=== PATIENT | female | born 1960 | race Caucasian/White ===

== ENCOUNTER 2016-10-08 08:00 | Inpatient (IN) ==
--- NOTE | 2016-10-07 09:46 | Cardiothoracic History & Phys ---
History of Present Illness Chief complaint: Chest pain History of present illness: Ms. Iqbal is a 56 year old female who is a patient of Dr. Ventura's at [facility] who has a history of ischemic coronary disease with multiple interventions requiring stents placed in her coronary arteries. She is continued however to have chest pain and it is felt that further stenting would be detrimental. She was referred for bypass surgery. Cardiac catheterization presently shows patent vessels in the right coronary anterior descending coronary and circumflex marginal coronary distribution all of which contain stents. She does have distal targets in the right and anterior descending distribution I think she is a candidate for surgery on that basis. She is to be admitted on 10/08/2016 for surgery on 10/11/2016. Past medical history is significant in that the patient has been a smoker all of her life but did quit in 2014 she does not use alcohol or drugs. Her family history shows that both her mother and father prematurely of coronary disease. Past medical history is also significant in that the patient has type 2 diabetes mellitus and rather severe peripheral vascular disease especially in the left leg. Physical examination patient is an obese white female in no acute distress. Examination of head eyes ears nose and throat show the pupils are equal react to light and extraocular motions are intact. Examination of the oropharynx is benign. Examination of the neck shows no masses and there is no thyromegaly. Examination of chest is clear to percussion and auscultation. Examination the heart reveals a regular sinus rhythm without murmurs. Examination the abdomen shows that it is obese nontender and no organomegaly or masses are appreciated. Examination extremities shows that there is a scar will left femoral- popliteal bypass operation on the left side and on the right side there has been no previous surgery. Neurological examination is grossly within normal limits. Assessment: Severe coronary artery disease with multiple previous stenting procedures. Plan: Coronary bypass surgery to the anterior descending and right coronary arteries. Home Medications Medication Instructions Recorded Confirmed Type Canagliflozin [Invokana] 300 mg PO QAM 05/05/16 05/05/16 History Carvedilol 12.5 mg PO BID 05/05/16 05/05/16 History Ergocalciferol (Vitamin D2) 50,000 unit PO DAILY 05/05/16 05/05/16 History [Vitamin D2] Eszopiclone [Eszopiclone] 3 mg PO BEDTIME 05/05/16 05/05/16 History Furosemide [Furosemide] 40 mg PO DAILY PRN 05/05/16 05/05/16 History Gabapentin [Gabapentin] 300 mg PO BID 05/05/16 05/05/16 History Insulin Degludec [Tresiba 45 unit SUBCUT QAM 05/05/16 05/05/16 History Flextouch U-100] Isosorbide Mononitrate [Isosorbide 60 mg PO DAILY 05/05/16 05/05/16 History Mononitrate ER] Lisinopril 5 mg PO DAILY 05/05/16 05/05/16 History Nitroglycerin Sl Tab [Nitrostat] 0.4 mg SL Q5M PRN 05/05/16 05/05/16 History Rosuvastatin [Crestor] 20 mg PO BEDTIME 05/05/16 05/05/16 History Ticagrelor [Brilinta] 90 mg PO BID 05/05/16 05/05/16 History Tizanidine HCl [Tizanidine HCl] 4 mg PO BEDTIME 05/05/16 05/05/16 History carBAMazepine [Carbamazepine ER] 200 mg PO BID 05/05/16 05/05/16 History Allergies Allergy/AdvReac Type Severity Reaction Status Date / Time levofloxacin [From Levaquin] Allergy ITCHING Verified 01/02/16 13:27 Medical,Surgical,& Family Hx - Medical History Cardio: History of: CAD Psychological: History of: Depression Respiratory: History of: Obstructive Sleep Apnea - Surgical History Cardiac Surgeries: Sugical HX of: Cardiac Catheterization, Cardiac Surgery (14 stents) HEENT Surgeries: Surgical HX of: Tonsilectomy & Adenoidectomy Reproductive Surgeries: Surgical HX of;: Section, Hysterectomy - Family History Family History: Reports;: Family Heart Disease
[~2016-10-08 08:00] MED LIST: DEXTROSE 50% 25 GM/50 ML VIAL IV PRN; FUROSEMIDE 40 MG TABLET PO PRN; GLUCAGON 1 MG VIAL IM PRN; NITROGLYCERIN SL 0.4 MG TABLET SL PRN
[2016-10-08] MEDS ORDERED: INSULIN DEGLUDEC 45 UNIT SUBCUT SCH (09:00)
--- NOTE | 2016-10-08 13:32 | Hospitalist Consult Note ---
Assessment and Plan - Time spent with patient Time spent with patient: Greater than 30 minutes (1) Diabetes Status: Acute Assessment and plan: Diabetes Medical Management: Will discontinue home diabetic medications; will place on SSI coverage. check A1c; parent educator consult. Current Visit: Yes Qualifiers: Diabetes mellitus type: type 2 Chronic kidney disease stage: stage 2 (mild ) (2) Coronary artery disease Status: Acute Current Visit: Yes (3) Sleep apnea Status: Acute Current Visit: Yes (4) Hypertension Status: Acute Current Visit: Yes (5) Peripheral vascular disease Status: Acute Current Visit: Yes History of Present Illness - Consult Narrative Reason for consult: Medical Management Diabetes History of present illness: Ms. Iqbal is a 56 year old white female at [facility] in [place] Room 285 for scheduled Coronary Artery Bypass scheduled for Tuesday. This consult visit is for Medical Management for Diabetes history. 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 Dr Byrd is following Stage II renal disease PCP Dr Magdi [place] CC: Luis Melendez MD - Home Medications and Allergies Home Medications: Home Medications Medication Instructions Recorded Confirmed Type Carvedilol 12.5 mg PO BID 05/05/16 10/08/16 History Furosemide [Furosemide] 80 mg PO DAILY 05/05/16 10/08/16 History Insulin Degludec [Tresiba 60 unit SUBCUT QAM 05/05/16 10/08/16 History Flextouch U-100] Isosorbide Mononitrate [Isosorbide 60 mg PO DAILY 05/05/16 10/08/16 History Mononitrate ER] Lisinopril 10 mg PO DAILY 05/05/16 10/08/16 History Nitroglycerin Sl Tab [Nitrostat] 0.4 mg SL Q5M PRN 05/05/16 10/08/16 History Rosuvastatin [Crestor] 20 mg PO BEDTIME 05/05/16 10/08/16 History Ticagrelor [Brilinta] 90 mg PO BID 05/05/16 10/08/16 History Tizanidine HCl [Tizanidine HCl] 4 mg PO BEDTIME 05/05/16 10/08/16 History Albuterol Sulfate [Albuterol Neb] 2.5 mg RESP TX Q6HR 10/08/16 10/08/16 History Amlodipine Besylate [Amlodipine 10 mg PO DAILY 10/08/16 10/08/16 History Besylate] Aspirin Chew Tab 81 mg PO DAILY 10/08/16 10/08/16 History Duloxetine HCl [Duloxetine] 30 mg PO DAILY 10/08/16 10/08/16 History Eszopiclone [Lunesta] 3 mg PO BEDTIME 10/08/16 10/08/16 History Evolocumab [Repatha Sureclick] 140 mg SUBCUT DIRECTED 10/08/16 10/08/16 History Fluticasone 50 Mcg Nasal [place] 2 spray BOTH NARES DAILY 10/08/16 10/08/16 History [Flonase Nas[place]] Folic Acid Tab 1 mg PO DAILY 10/08/16 10/08/16 History Gabapentin [Gabapentin] 300 mg PO BID 10/08/16 10/08/16 History Hydrocodone/Acetaminophen 1 tablet PO Q4HR 10/08/16 10/08/16 History [Hydrocodon-Acetaminophn 10-325] Icosapent Ethyl [Vascepa] 2 capsule PO BID 10/08/16 10/08/16 History Insulin Aspart [NovoLOG FlexPen] 20 unit SUBCUT TID 10/08/16 10/08/16 History Saxagliptin HCl [Onglyza] 5 mg PO DAILY 10/08/16 10/08/16 History Sertraline [Zoloft] 100 mg PO DAILY 10/08/16 10/08/16 History carBAMazepine XR TAB [TEGretol XR] 200 mg PO BID 10/08/16 10/08/16 History hydrALAZINE TAB [Apresoline Tab] 1.5 tablet PO TID 10/08/16 10/08/16 History metOLazone [Metolazone] 5 mg PO DAILY 10/08/16 10/08/16 History Allergies/Adverse Reactions: Allergies Allergy/AdvReac Type Severity Reaction Status Date / Time levofloxacin [From Levaquin] Allergy ITCHING Verified 01/02/16 13:27 Medical,Surgical,& Family Hx - Medical History Cardio: History of: CAD, Hypertension, SD, Cardiovascular Problems Psychological: History of: Depression Neurology: History of: Cerebrovascular Accident (right stroke without deficits) Endocrine: History of: Dyslipidemia Rheumatology: History of;: Fibromyalgia Respiratory: History of: Obstructive Sleep Apnea Gastrointestinal: History of: GERD - Surgical History Cardiac Surgeries: Sugical HX of: Femoral-Popliteal Bypass Graft (Left leg; clotted bypass and stents placed; bilateral leg stents), Cardiac Catheterization , Cardiac Surgery (15 stents; pacemaker) HEENT Surgeries: Surgical HX of: Tonsilectomy & Adenoidectomy Reproductive Surgeries: Surgical HX of;: Section, Hysterectomy - Family History Family History: Reports;: Family Heart Disease, Family Hypertension - Social History Smoking Status: Former smoker (quit December 2014) Frequency of Alcohol Use: None Type of Drug Use: None Marital Status: Lives With:: 3 grandchildren Functional capacity: uses cane/walker Review of systems: ROS completed and pertinent positives and negatives in HPI. Exam - Constitutional Vitals: Period Temp Pulse Resp BP Sys/Hoang Pulse Ox Last 24 Hr 97.9 F 63 20 141/74 General appearance: no acute distress, morbidly obese - Head Head exam: Present: normal inspection - Eye Eye exam: Present: EOMI Pupils: Present: ZAFAR - Neck Neck exam: Present: normal inspection - Respiratory Respiratory exam: Present: clear to auscultation bilaterally - GI/Abdominal GI/Abdominal exam: Present: normal bowel sounds, soft. Absent: guarding, tenderness, rebound - Extremities Exam Extremities exam: Present: edema, other (left leg Bypass (fem-pop) scar and bilateral edema) - Neurological Exam Neurological exam: Present: alert, oriented X3 - Psychiatric Psychiatric exam: Present: normal affect - Skin Skin exam: Present: normal color, warm, dry Results - Labs Lab Results: I have reviewed the past 24 hour labs Labs: Blood Glucose 235 Quality Measures - VTE Contraindication to Pharmacological VTE Prophylaxis: High Risk of Bleeding
[2016-10-08] MEDS ORDERED: GLUCAGON 1 MG VIAL IM PRN (14:00)
[2016-10-08] MEDS ORDERED: DEXTROSE 50% 25 GM/50 ML VIAL IV PRN (14:00)
[2016-10-08] MEDS: INSULIN LISPRO 100 UNIT/ML SUBCUT SCH ×2 (16:05→22:23)
[2016-10-08] MEDS ORDERED: INSULIN LISPRO 100 UNIT/ML SUBCUT SCH ×3 (17:00→21:00)
[2016-10-08] MEDS: ALBUTEROL 2.5 MG/3 ML NEB RESP TX SCH (19:50)
[2016-10-08] MEDS ORDERED: GABAPENTIN 300 MG CAPSULE PO SCH (21:00)
[2016-10-08] MEDS: ZALEPLON 5 MG CAPSULE PO SCH (22:22)
[2016-10-08] MEDS: hydrALAZINE 25 MG TABLET PO SCH (22:22)
[2016-10-09] MEDS: ALBUTEROL 2.5 MG/3 ML NEB RESP TX SCH ×5 (01:50→20:01)
[2016-10-09 04:07] LABS: Allen Test Positive; Pt O2 Delivery Device Room Air
[2016-10-09 04:18] LABS: ABG Base Excess 4.4 MMOL/L (-2.5-2.5); ABG HCO3 28.3 MMOL/L (20-26); ABG Oxygen Saturation 90.5 % (95-100); ABG PCO2 44.1 MM HG (35-48); ABG PH 7.429 (7.35-7.45); ABG PO2 54.3 MM HG (80-95); ABG TCO2 27.3 MMOL/L (23-27)
[2016-10-09 06:15] LABS: Basophils % 0.6 % (0.0-0.8); Eosinophils # 0.2 10*3/uL (0.0-0.87); Eosinophils % 3.7 % (0.00-10.9); Hematocrit 25.5 VOL% (35.7-47.0); Immature Granulocytes Absolute 0.05 #; Lymphocytes # 1.7 10*3/uL (1.4-4.0); Lymphocytes % 32.7 % (21.3-54.2); Mean Corpuscular HGB Conc 35.7 GM/DL (32-36); Mean Corpuscular Hemoglobin 34 PG (27-34); Mean Corpuscular Volume 95.9 FL (87-102); Mean Platelet Volume 11.3 FL (9.6-12.0); Monocytes # 0.4 10*3/uL (0.11-0.8); Monocytes % 7.7 % (1.7-12.7); Neutrophils # 2.8 10*3/uL (1.4-7.4); Neutrophils % 54.3 % (38.7-73.9); Platelet Count 175 T/CUMM (130-400); Red Blood Count 2.66 MC/CUMM (3.8-5.5); Red Cell Distribution Width 13.1 % (9.3-17.3); White Blood Count 5.2 T/CUMM (4-12)
[2016-10-09 06:16] LABS: Hemoglobin 9.1 GM/DL (12.0-16.0)
[2016-10-09 06:39] LABS: Alanine Aminotransferase 23 U/L (13-56); Albumin 2.5 G/DL (3.4-5.0); Alkaline Phosphatase 98 U/L (45-117); Aspartate Amino Transferase 15 U/L (0-37); Bilirubin,Total < 0.39 MG/DL (0.2-1.0); Blood Urea Nitrogen 55 MG/DL (7-18); Calcium 8.6 MG/DL (8.5-10.1); Glucose 187 MG/DL (74-106); Osmolality,Calculated 305.8 MOS/KG (273-304); Potassium 4.2 MMOL/L (3.5-5.1); Sodium 144 MMOL/L (136-145); Total Protein 5.5 G/DL (6.4-8.3)
[2016-10-09 06:55] LABS: Hypochromasia Slight; Platelet Estimate Adequate
[2016-10-09] MEDS: FLUTICASONE 50 MCG NASAL SPRAY 16 GM BOTTLE BOTH NARES SCH (08:24)
[2016-10-09] MEDS: DULoxetine 30 MG CAPSULE PO SCH (08:26)
[2016-10-09] MEDS: ASPIRIN CHEW 81 MG TABLET PO SCH (08:26)
[2016-10-09] MEDS: amLODIPine 10 MG TABLET PO SCH (08:26)
[2016-10-09] MEDS: FOLIC ACID 1 MG TABLET PO SCH (08:26)
[2016-10-09] MEDS: hydrALAZINE 25 MG TABLET PO SCH ×3 (08:26→21:15)
[2016-10-09] MEDS: INSULIN LISPRO 100 UNIT/ML SUBCUT SCH ×7 (08:28→21:16)
--- NOTE | 2016-10-09 08:49 | Cardiothoracic Progress Note ---
Cardiothoracic Subjective Interval history: Patient is ready for surgery on Tuesday. She is breathing comfortably and vital signs have been stable however her PO2 on room air is in the 50s. She is a longtime smoker but quit approximately 2 years ago. I suspect she has significant COPD and I am going to go ahead and start her on steroids and antibiotics along with her current breathing treatments today in preparation for surgery Tuesday. Exam (Progress Note) - Constitutional Vitals: Period Temp Pulse Resp BP Sys/Hoang Pulse Ox Last 24 Hr 97.6 F-98.2 F 60-63 14-20 103-173/49-74 92-99 Result/EKG - Labs CBC & BMP: 10/09/16 05:11 10/09/16 05:11 Labs: Laboratory Results - last 24 hr 10/08/16 10/08/16 10/08/16 11:57 15:36 21:06 WBC RBC Hgb Hct MCV MCH MCHC RDW Plt Count MPV Neut % (Auto) Lymph % (Auto) [place] % (Auto) Eos % (Auto) Baso % (Auto) Neut # (Auto) Lymph # (Auto) [place] # (Auto) Eos # (Auto) Baso # (Auto) Immature Gran % Nucleated RBC % Immature Gran # Nucleated RBCs # Platelet Estimate Hypochromasia Morphology Comment ABG pH ABG pCO2 ABG pO2 ABG HCO3 ABG Total CO2 ABG O2 Saturation ABG Base Excess FiO2 Sodium Potassium Chloride Carbon Dioxide Anion Gap BUN Creatinine GFR Calculation BUN/Creatinine Ratio Glucose POC Glucose 235 H 239 H 386 H Hemoglobin A1c Calculated Osmolality Calcium Total Bilirubin AST ALT Alkaline Phosphatase Total Protein Albumin Globulin Albumin/Globulin Ratio 10/09/16 10/09/16 10/09/16 03:55 05:11 05:11 WBC 5.2 RBC 2.66 L Hgb 9.1 L Hct 25.5 L MCV 95.9 MCH 34 MCHC 35.7 RDW 13.1 Plt Count 175 MPV 11.3 Neut % (Auto) 54.3 Lymph % (Auto) 32.7 [place] % (Auto) 7.7 Eos % (Auto) 3.7 Baso % (Auto) 0.6 Neut # (Auto) 2.8 Lymph # (Auto) 1.7 [place] # (Auto) 0.4 Eos # (Auto) 0.2 Baso # (Auto) 0.0 Immature Gran % 1.0 Nucleated RBC % 0.0 Immature Gran # 0.05 Nucleated RBCs # 0.00 Platelet Estimate Adequate Hypochromasia Slight Morphology Comment ABG pH 7.429 ABG pCO2 44.1 ABG pO2 54.3 L ABG HCO3 28.3 H ABG Total CO2 27.3 H ABG O2 Saturation 90.5 L ABG Base Excess 4.4 H FiO2 21.00 Sodium Potassium Chloride Carbon Dioxide Anion Gap BUN Creatinine GFR Calculation BUN/Creatinine Ratio Glucose POC Glucose Hemoglobin A1c 10.7 H Calculated Osmolality Calcium Total Bilirubin AST ALT Alkaline Phosphatase Total Protein Albumin Globulin Albumin/Globulin Ratio 10/09/16 10/09/16 05:11 07:23 WBC RBC Hgb Hct MCV MCH MCHC RDW Plt Count MPV Neut % (Auto) Lymph % (Auto) [place] % (Auto) Eos % (Auto) Baso % (Auto) Neut # (Auto) Lymph # (Auto) [place] # (Auto) Eos # (Auto) Baso # (Auto) Immature Gran % Nucleated RBC % Immature Gran # Nucleated RBCs # Platelet Estimate Hypochromasia Morphology Comment ABG pH ABG pCO2 ABG pO2 ABG HCO3 ABG Total CO2 ABG O2 Saturation ABG Base Excess FiO2 Sodium 144 Potassium 4.2 Chloride 107 Carbon Dioxide 29 Anion Gap 12.2 BUN 55 H Creatinine 1.70 H GFR Calculation 39 BUN/Creatinine Ratio 32.00 H Glucose 187 H POC Glucose 235 H Hemoglobin A1c Calculated Osmolality 305.8 H Calcium 8.6 Total Bilirubin < 0.39 AST 15 ALT 23 Alkaline Phosphatase 98 Total Protein 5.5 L Albumin 2.5 L Globulin 3.0 Albumin/Globulin Ratio 0.8 L Quality Measures - VTE Contraindication to Pharmacological VTE Prophylaxis: High Risk of Bleeding
[2016-10-09] MEDS ORDERED: SERTRALINE 100 MG TABLET PO SCH (09:00)
[2016-10-09] MEDS: methylPREDNISolone SOD SUC 125 MG/2 ML VIAL IV SCH ×2 (09:01→21:15)
--- NOTE | 2016-10-09 09:03 | EKG Report ---
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
--- NOTE | 2016-10-09 09:44 | Hospitalist Progress Note ---
Assessment and Plan (1) Diabetes Status: Acute Assessment and plan: Lantus was started on yesterday; however blood sugars have remained consistently high. Fasting blood sugar was noted at 235. We will increase Humalog to 20 mg prior to each meal and continue Lantus 15 units nightly. We will monitor closely and reassess blood sugars in a.m. Current Visit: Yes Qualifiers: Diabetes mellitus type: type 2 Chronic kidney disease stage: stage 2 (mild ) Hospitalist: Subjective Interval history: Patient seen and examined; chart reviewed. No significant overnight events. Blood sugars remain moderately elevated overnight. Blood glucose levels were noted at 235, 239, 386, and 235. Will review insulin and make adjustments. Exam - Constitutional Vitals: Period Temp Pulse Resp BP Sys/Hoang Pulse Ox Last 24 Hr 97.6 F-98.2 F 60-64 14-20 103-173/49-74 92-99 General appearance: normal weight, no acute distress - Head Head exam: Present: normal inspection, normocephalic, atraumatic - Eye Eye exam: Present: EOMI, conjunctival injection Pupils: Present: ZAFAR, normal accommodation - ENT ENT exam: Present: normal exam, normal external ear exam, normal oropharynx - Neck Neck exam: Present: normal inspection. Absent: lymphadenopathy, meningismus, thyromegaly - Respiratory Respiratory exam: Present: decreased breath sounds - Cardiovascular Cardiovascular exam: Present: regular rate and rhythm. Absent: carotid bruit, diastolic murmur, gallop, JVD, rubs, systolic murmur - GI/Abdominal GI/Abdominal exam: Present: normal bowel sounds, soft - Extremities Exam Extremities exam: Present: normal inspection, normal capillary refill, full ROM - Back Exam Back exam: Present: normal inspection - Neurological Exam Neurological exam: Present: alert, oriented X3, CN II-XII intact - Psychiatric Psychiatric exam: Present: normal affect, normal mood - Skin Skin exam: Present: normal color, warm, dry Results - Labs CBC & BMP: 10/09/16 05:11 10/09/16 05:11 Lab Results: I have reviewed the past 24 hour labs Quality Measures - VTE Contraindication to Pharmacological VTE Prophylaxis: High Risk of Bleeding
[2016-10-09] MEDS: CEFUROXIME INJ 1,500 MG in SODIUM CHLORIDE 0.9% 100 ML IV SCH ×2 (10:00→21:17)
--- NOTE | 2016-10-09 11:37 | XRay Report ---
History: Coronary artery disease Date: 10/09/2016 Study: Chest x-ray PA and lateral Comparison exam: January 02, 2016 chest x-ray A left subclavian dual-lead transvenous pacemaker has been placed since the previous study; the pacemaker is generally intact and well-positioned. The cardiac silhouette is upper normal in size. Cardiac stent overlies the anterior left cardiac shadow. There is no mediastinal mass. The pulmonary vasculature is not engorged. There is no acute infiltrate. There is no layering pleural effusion. Osseous structures are unchanged. Impression: No acute process. Interval pacemaker placement since the previous study. Coronary artery stent PROCEDURE INTERPRETED AT [facility] Final Report Signed by: Dr. Shellie Mullins
[2016-10-09] MEDS ORDERED: FUROSEMIDE 40 MG/4 ML VIAL IV ONE (13:07)
[2016-10-09] MEDS ORDERED: INSULIN GLARGINE 100 UNIT/ML SUBCUT SCH (21:00)
[2016-10-09] MEDS: ZALEPLON 5 MG CAPSULE PO SCH (21:16)
[2016-10-10] MEDS: ALBUTEROL 2.5 MG/3 ML NEB RESP TX SCH ×4 (00:04→21:02)
[2016-10-10] MEDS: cloNIDine 0.1 MG TABLET PO SCH ×2 (01:48→10:46)
[2016-10-10 04:21] LABS: Basophils % 0.3 % (0.0-0.8); Eosinophils % 0.2 % (0.00-10.9); Hematocrit 28.2 VOL% (35.7-47.0); Hemoglobin 9.6 GM/DL (12.0-16.0); Immature Granulocytes Absolute 0.06 #; Lymphocytes # 0.9 10*3/uL (1.4-4.0); Lymphocytes % 14.8 % (21.3-54.2); Mean Corpuscular Hemoglobin 33 PG (27-34); Mean Corpuscular Volume 95.6 FL (87-102); Mean Platelet Volume 11.7 FL (9.6-12.0); Monocytes # 0.2 10*3/uL (0.11-0.8); Monocytes % 2.9 % (1.7-12.7); Neutrophils % 80.8 % (38.7-73.9); Platelet Count 196 T/CUMM (130-400); Red Blood Count 2.95 MC/CUMM (3.8-5.5); Red Cell Distribution Width 13.1 % (9.3-17.3); White Blood Count 6.2 T/CUMM (4-12)
[2016-10-10 04:58] LABS: Albumin 2.7 G/DL (3.4-5.0); Bilirubin,Total 1.2 MG/DL (0.2-1.0); Calcium 9.5 MG/DL (8.5-10.1); Magnesium 2.2 MG/DL (1.8-2.4); Osmolality,Calculated 309.4 MOS/KG (273-304); Potassium 4.5 MMOL/L (3.5-5.1)
[2016-10-10] MEDS ORDERED: ZALEPLON 5 MG CAPSULE PO PRN (07:55)
--- NOTE | 2016-10-10 07:57 | Cardiothoracic Progress Note ---
Cardiothoracic Subjective Interval history: Patient is ready for surgery in the morning. I have purposefully held her Lovenox primarily because bleeding will be something of a concern due to her having been treated with Brilinta up until 1 week ago. So far she has been free of any chest pain off Lovenox. Her blood sugars have been running somewhat high and her sliding scale has been increased in order to treat this. I would like to continue her on steroids because of her restricted pulmonary function. Hopefully we will be able to wean her off steroids relatively quickly after surgery. Exam (Progress Note) - Constitutional Vitals: Period Temp Pulse Resp BP Sys/Hoang Pulse Ox Last 24 Hr 97.1 F-98.3 F 59-69 18-20 103-160/49-73 93-100 Result/EKG - Labs CBC & BMP: 10/10/16 03:14 10/10/16 03:14 Labs: Laboratory Results - last 24 hr 10/09/16 10/09/16 10/09/16 11:54 16:08 21:16 WBC RBC Hgb Hct MCV MCH MCHC RDW Plt Count MPV Neut % (Auto) Lymph % (Auto) [place] % (Auto) Eos % (Auto) Baso % (Auto) Neut # (Auto) Lymph # (Auto) [place] # (Auto) Eos # (Auto) Baso # (Auto) Immature Gran % Nucleated RBC % Immature Gran # Nucleated RBCs # Sodium Potassium Chloride Carbon Dioxide Anion Gap BUN Creatinine GFR Calculation BUN/Creatinine Ratio Glucose POC Glucose 337 H 399 H 399 H Calculated Osmolality Calcium Phosphorus Magnesium Total Bilirubin AST ALT Alkaline Phosphatase Total Protein Albumin Globulin Albumin/Globulin Ratio Blood Type Antibody Screen Crossmatch 10/10/16 10/10/16 10/10/16 03:14 03:14 03:14 WBC 6.2 RBC 2.95 L Hgb 9.6 L Hct 28.2 L MCV 95.6 MCH 33 MCHC 34.0 RDW 13.1 Plt Count 196 MPV 11.7 Neut % (Auto) 80.8 H Lymph % (Auto) 14.8 L [place] % (Auto) 2.9 Eos % (Auto) 0.2 Baso % (Auto) 0.3 Neut # (Auto) 5.0 Lymph # (Auto) 0.9 L [place] # (Auto) 0.2 Eos # (Auto) 0.0 Baso # (Auto) 0.0 Immature Gran % 1.0 Nucleated RBC % 0.0 Immature Gran # 0.06 Nucleated RBCs # 0.00 Sodium 140 Potassium 4.5 Chloride 102 Carbon Dioxide 28 Anion Gap 14.5 BUN 57 H Creatinine 1.60 H GFR Calculation 42 BUN/Creatinine Ratio 35.00 H Glucose 369 H POC Glucose Calculated Osmolality 309.4 H Calcium 9.5 Phosphorus 3.0 Magnesium 2.2 Total Bilirubin 1.20 H AST 12 ALT 23 Alkaline Phosphatase 104 Total Protein 6.0 L Albumin 2.7 L Globulin 3.3 Albumin/Globulin Ratio 0.8 L Blood Type O POSITIVE Antibody Screen Negative Crossmatch See Detail 10/10/16 Unknown WBC RBC Hgb Hct MCV MCH MCHC RDW Plt Count MPV Neut % (Auto) Lymph % (Auto) [place] % (Auto) Eos % (Auto) Baso % (Auto) Neut # (Auto) Lymph # (Auto) [place] # (Auto) Eos # (Auto) Baso # (Auto) Immature Gran % Nucleated RBC % Immature Gran # Nucleated RBCs # Sodium Potassium Chloride Carbon Dioxide Anion Gap BUN Creatinine GFR Calculation BUN/Creatinine Ratio Glucose POC Glucose Calculated Osmolality Calcium Phosphorus Magnesium Total Bilirubin AST ALT Alkaline Phosphatase Total Protein Albumin Globulin Albumin/Globulin Ratio Blood Type O POSITIVE Antibody Screen Crossmatch Quality Measures - VTE Contraindication to Pharmacological VTE Prophylaxis: High Risk of Bleeding
[2016-10-10] MEDS: INSULIN LISPRO 100 UNIT/ML SUBCUT SCH ×7 (09:00→21:51)
[2016-10-10] MEDS ORDERED: NON-FORMULARY MEDICATION (Canagliflozin [Invokana] 300 MG) PO SCH (09:00)
[2016-10-10] MEDS ORDERED: ERGOCALCIFEROL 50,000 UNIT CAPSULE PO SCH (09:00)
[2016-10-10] MEDS ORDERED: LISINOPRIL 5 MG TABLET PO SCH (09:00)
[2016-10-10] MEDS: methylPREDNISolone SOD SUC 125 MG/2 ML VIAL IV SCH ×2 (09:03→20:41)
[2016-10-10] MEDS: CEFUROXIME INJ 1,500 MG in SODIUM CHLORIDE 0.9% 100 ML IV SCH ×2 (09:04→20:42)
[2016-10-10] MEDS: ASPIRIN CHEW 81 MG TABLET PO SCH (09:08)
[2016-10-10] MEDS: DULoxetine 30 MG CAPSULE PO SCH (09:08)
[2016-10-10] MEDS: FUROSEMIDE 80 MG TABLET PO SCH (09:08)
[2016-10-10] MEDS: FOLIC ACID 1 MG TABLET PO SCH (09:08)
[2016-10-10] MEDS: hydrALAZINE 25 MG TABLET PO SCH ×3 (09:09→20:39)
[2016-10-10] MEDS: FLUTICASONE 50 MCG NASAL SPRAY 16 GM BOTTLE BOTH NARES SCH (09:09)
[2016-10-10] MEDS: amLODIPine 10 MG TABLET PO SCH (09:12)
[2016-10-10] MEDS: ISOSORBIDE MONONITRATE 60 MG TABLET PO SCH (09:12)
--- NOTE | 2016-10-10 09:23 | Hospitalist Progress Note ---
Assessment and Plan (1) Diabetes Status: Acute Assessment and plan: Lantus was started on yesterday; however blood sugars have remained consistently high. Fasting blood sugar was noted at 235. We will increase Humalog to 20 mg prior to each meal and continue Lantus 15 units nightly. We will monitor closely and reassess blood sugars in a.m. 7/2-blood sugars have remained markedly elevated; patient is on a dose of corticosteroids. We have readjusted her insulins and increase the Lantus to 25 nightly. We will continue to monitor glucose levels carefully. CABG tomorrow morning per Dr. Melendez. Current Visit: Yes Qualifiers: Diabetes mellitus type: type 2 Chronic kidney disease stage: stage 2 (mild ) Hospitalist: Subjective Interval history: Patient seen and examined; chart reviewed. Blood sugars remain elevated; agree with cardiology recommendation to continue corticosteroids due to the patient's extensive pulmonary history. CABG in a.m. Exam - Constitutional Vitals: Period Temp Pulse Resp BP Sys/Hoang Pulse Ox Last 24 Hr 97.1 F-98.3 F 59-69 18-20 122-160/53-73 93-100 General appearance: no acute distress, morbidly obese - Head Head exam: Present: normal inspection, normocephalic, atraumatic - Eye Eye exam: Present: EOMI, conjunctival injection Pupils: Present: ZAFAR, normal accommodation - ENT ENT exam: Present: normal exam, normal external ear exam, normal oropharynx - Neck Neck exam: Present: normal inspection. Absent: lymphadenopathy, meningismus, thyromegaly - Respiratory Respiratory exam: Present: clear to auscultation bilaterally. Absent: rales, rhonchi, stridor, wheezes - Cardiovascular Cardiovascular exam: Present: regular rate and rhythm. Absent: carotid bruit, diastolic murmur, gallop, JVD, rubs, systolic murmur - GI/Abdominal GI/Abdominal exam: Present: normal bowel sounds, soft - Extremities Exam Extremities exam: Present: edema - Back Exam Back exam: Present: normal inspection - Neurological Exam Neurological exam: Present: alert, oriented X3, CN II-XII intact - Psychiatric Psychiatric exam: Present: normal affect, normal mood - Skin Skin exam: Present: normal color, warm, dry Results - Labs CBC & BMP: 10/10/16 03:14 10/10/16 03:14 Lab Results: I have reviewed the past 24 hour labs Quality Measures - VTE Contraindication to Pharmacological VTE Prophylaxis: High Risk of Bleeding
[2016-10-10] MEDS: SODIUM CHLORIDE 0.9% 1,000 ML IV SCH (10:47)
[2016-10-10 11:28] LABS: ABG Base Excess 0.3 MMOL/L (-2.5-2.5); ABG HCO3 24.7 MMOL/L (20-26); ABG Oxygen Saturation 98.1 % (95-100); ABG PCO2 40.3 MM HG (35-48); ABG PH 7.401 (7.35-7.45); ABG TCO2 22.9 MMOL/L (23-27); Pt O2 Delivery Device Room Air
[2016-10-10] MEDS: CHLORHEXIDINE 4% SOLN 118 ML BOTTLE TOP SCH ×2 (15:59→20:40)
[2016-10-10] MEDS: CARVEDILOL 12.5 MG TABLET PO SCH (16:38)
[2016-10-10] MEDS ORDERED: INSULIN LISPRO 100 UNIT/ML SUBCUT ONE (18:49)
[2016-10-10] MEDS: GABAPENTIN 300 MG CAPSULE PO SCH (20:39)
[2016-10-10] MEDS ORDERED: SERTRALINE 100 MG TABLET PO SCH (21:00)
[2016-10-10] MEDS ORDERED: ZALEPLON 5 MG CAPSULE PO SCH (21:00)
[2016-10-10] MEDS ORDERED: tiZANidine 4 MG TABLET PO SCH (21:00)
[2016-10-10] MEDS ORDERED: ROSUVASTATIN 20 MG TABLET PO SCH (21:00)
[2016-10-10] MEDS ORDERED: INSULIN GLARGINE 100 UNIT/ML SUBCUT SCH (21:00)
[2016-10-11] MEDS: ALBUTEROL 2.5 MG/3 ML NEB RESP TX SCH ×2 (00:58→07:34)
[2016-10-11] MEDS: CHLORHEXIDINE 4% SOLN 118 ML BOTTLE TOP SCH ×2 (04:30→09:37)
[2016-10-11] MEDS ORDERED: TISSUE ADHESIVE 1 EACH APPLICATOR TOP ONE (04:38)
[2016-10-11] MEDS ORDERED: PAPAVERINE 60 MG/2 ML VIAL ONE (04:38)
[2016-10-11] MEDS ORDERED: VANCOMYCIN 1,000 MG VIAL ONE (04:38)
[2016-10-11] MEDS: ISOSORBIDE MONONITRATE 60 MG TABLET PO SCH ×2 (05:20→09:38)
[2016-10-11] MEDS: amLODIPine 10 MG TABLET PO SCH ×2 (05:20→09:38)
[2016-10-11] MEDS: hydrALAZINE 25 MG TABLET PO SCH ×2 (05:20→09:36)
[2016-10-11] MEDS: CARVEDILOL 12.5 MG TABLET PO SCH ×2 (05:20→09:36)
[2016-10-11] MEDS ORDERED: ALBUTEROL 2.5 MG/3 ML NEB RESP TX ONE (05:30)
[2016-10-11] MEDS: FAMOTIDINE 20 MG TABLET PO ONE ×2 (05:30→05:47)
[2016-10-11] MEDS ORDERED: LORazepam 1 MG TABLET PO ONE (05:30)
[2016-10-11] MEDS ORDERED: IPRATROPIUM 500 MCG/2.5 ML NEB RESP TX ONE (05:30)
[2016-10-11] MEDS: SODIUM CHLORIDE 0.9% 1,000 ML IV SCH (06:30)
--- NOTE | 2016-10-11 06:44 | Cardiothoracic Progress Note ---
Cardiothoracic Subjective Interval history: Ready for surgery Exam (Progress Note) - Constitutional Vitals: Period Temp Pulse Resp BP Sys/Hoang Pulse Ox Last 24 Hr 97.2 F-98.8 F 60-81 18-20 122-158/62-81 94-100 Result/EKG - Labs CBC & BMP: 10/10/16 03:14 10/10/16 18:10 Labs: Laboratory Results - last 24 hr 10/10/16 10/10/16 10/10/16 03:14 08:06 11:13 ABG pH 7.401 ABG pCO2 40.3 ABG pO2 103.0 H ABG HCO3 24.7 ABG Total CO2 22.9 L ABG O2 Saturation 98.1 ABG Base Excess 0.3 FiO2 21.00 Glucose POC Glucose 289 H Blood Type O POSITIVE Antibody Screen Negative Crossmatch See Detail 10/10/16 10/10/16 10/10/16 11:40 15:29 15:38 ABG pH ABG pCO2 ABG pO2 ABG HCO3 ABG Total CO2 ABG O2 Saturation ABG Base Excess FiO2 Glucose 422 H POC Glucose 386 H 406 H Blood Type Antibody Screen Crossmatch 10/10/16 10/10/16 10/10/16 17:58 18:10 21:00 ABG pH ABG pCO2 ABG pO2 ABG HCO3 ABG Total CO2 ABG O2 Saturation ABG Base Excess FiO2 Glucose 482 H POC Glucose > 500 H* 399 H Blood Type Antibody Screen Crossmatch 10/10/16 10/11/16 Unknown 04:36 ABG pH ABG pCO2 ABG pO2 ABG HCO3 ABG Total CO2 ABG O2 Saturation ABG Base Excess FiO2 Glucose POC Glucose 214 H Blood Type O POSITIVE Antibody Screen Crossmatch Quality Measures - VTE Contraindication to Pharmacological VTE Prophylaxis: High Risk of Bleeding
[2016-10-11] MEDS ORDERED: LIDOCAINE 2% 5 ML VIAL ONE (06:45)
[2016-10-11] MEDS ORDERED: CALCIUM CHLORIDE 1,000 MG/10 ML SYRINGE IV ONE ×2 (06:45→08:21)
[2016-10-11] MEDS ORDERED: VECURONIUM 10 MG VIAL IV ONE (06:45)
[2016-10-11] MEDS ORDERED: AMINOCAPROIC ACID 5,000 MG/20 ML VIAL IV ONE (06:45)
[2016-10-11] MEDS ORDERED: ETOMIDATE 20 MG/10 ML VIAL IV ONE (06:45)
[2016-10-11] MEDS ORDERED: CEFUROXIME INJ 1,500 MG in SODIUM CHLORIDE 0.9% 100 ML IV ONE (07:00)
[2016-10-11 07:31] LABS: ABG Base Excess 3.8 MMOL/L (-2.5-2.5); ABG HCO3 27.9 MMOL/L (20-26); ABG PCO2 35.2 MM HG (35-48); ABG PH 7.496 (7.35-7.45); ABG TCO2 25.2 MMOL/L (23-27); Glucose Heart Surgery 202 MG/DL (74-106); Hematocrit Heart Surgery 25.5 PERCENT (37-47); Hemoglobin Heart Surgery 8.2 G/DL (12.0-16.0); Ionized Calcium Arterial 1.09 MMOL/L (1.21-1.46); PCO2 Patient Temp Arterial 35.2 MMHG; PH Patient Temp Arterial 7.496; Patient Temperature 37 CELCIUS; Potassium Heart/CVR 3.7 MMOL/L (3.5-5.1); Sodium Heart/CVR 138 MMOL/L (135-145)
[2016-10-11 08:05] LABS: Amorphous Crystals,Urine Occasional /HPF (Few); Apearance,Urine CLEAR (Clear); Bacteria,Urine Occasional /HPF (Few); Bilirubin,Urine Negative (Negative); Blood, Urine Small mg/dL (Negative); Glucose,Urine (UA) 50 mg/dL (Negative); Ketones,Urine Negative (Negative); Mucus,Urine Occasional /LPF (Occasional); Nitrite,Urine Negative (Negative); Protein,Urine 100 MG/DL; RBC,Urine 1 /HPF (0-4); Squamous Epithelial Cell,Urine Occasional /HPF (0-10); Urine Color Yellow (Yellow); Urine Specific Gravity 1.014 (1.001-1.035); Urine Urobilinogen < 2.0 EU/DL (0.2-1.0); WBC,Urine 1 /HPF (0-6)
[2016-10-11] MEDS ORDERED: NITROPRUSSIDE 50 MG/2 ML VIAL ONE (08:21)
[2016-10-11] MEDS ORDERED: POTASSIUM CHLORIDE RIDER 100 ML IV ONE (08:22)
[2016-10-11] MEDS ORDERED: CHLORHEXIDINE 0.12% ORAL RINSE 60 ML BOTTLE SWISH/SPIT SCH (09:00)
[2016-10-11 09:18] LABS: Hematocrit Heart Surgery 21.8 PERCENT (37-47); PCO2 Patient Temp Venous 44.8 MM HG; PH Patient Temp Venous 7.387; PO2 Patient Temp Venous 29.9 MM HG; Potassium Heart/CVR 5.2 MMOL/L (3.5-5.1); VBG Base Excess 2.1 MEQ/L (0-4); VBG HCO3 25.9 MEQ/L (24-28); VBG PCO2 51.8 MMHG (41-51); VBG PH 7.345; VBG PO2 36.9 MMHG (17-40)
[2016-10-11] MEDS ORDERED: INSULIN REGULAR 100 UNIT/ML ONE (09:31)
[2016-10-11] MEDS: INSULIN LISPRO 100 UNIT/ML SUBCUT SCH ×3 (09:35→16:55)
[2016-10-11] MEDS: FLUTICASONE 50 MCG NASAL SPRAY 16 GM BOTTLE BOTH NARES SCH (09:37)
[2016-10-11] MEDS: FOLIC ACID 1 MG TABLET PO SCH (09:37)
[2016-10-11] MEDS: DULoxetine 30 MG CAPSULE PO SCH (09:37)
[2016-10-11] MEDS: ASPIRIN CHEW 81 MG TABLET PO SCH (09:37)
[2016-10-11] MEDS: methylPREDNISolone SOD SUC 125 MG/2 ML VIAL IV SCH (09:38)
[2016-10-11] MEDS: FUROSEMIDE 80 MG TABLET PO SCH (09:38)
[2016-10-11] MEDS: GABAPENTIN 300 MG CAPSULE PO SCH (09:38)
[2016-10-11] MEDS: CEFUROXIME INJ 1,500 MG in SODIUM CHLORIDE 0.9% 100 ML IV SCH ×2 (09:39→18:51)
[2016-10-11] MEDS ORDERED: PHENYLEPHRINE DRIP 40 MG/250 ML PREMIX IV ONE (09:49)
[2016-10-11] MEDS ORDERED: INSULIN REGULAR DRIP 100 ML IV ONE (09:49)
[2016-10-11] MEDS ORDERED: ALBUMIN 5% 12.5 GM/250 ML VIAL IV ONE (09:49)
[2016-10-11 10:27] LABS: ABG Base Excess 0.9 MMOL/L (-2.5-2.5); ABG HCO3 25.3 MMOL/L (20-26); ABG PCO2 45.7 MM HG (35-48); ABG PH 7.369 (7.35-7.45); ABG TCO2 24.8 MMOL/L (23-27); Glucose Heart Surgery 298 MG/DL (74-106); Hematocrit Heart Surgery 23.8 PERCENT (37-47); Hemoglobin Heart Surgery 7.6 G/DL (12.0-16.0); Ionized Calcium Arterial 1.27 MMOL/L (1.21-1.46); PCO2 Patient Temp Arterial 45.7 MMHG; PH Patient Temp Arterial 7.369; Patient Temperature 37 CELCIUS; Potassium Heart/CVR 4.3 MMOL/L (3.5-5.1); Sodium Heart/CVR 137 MMOL/L (135-145)
[2016-10-11] MEDS ORDERED: ALBUMIN 25% 25 GM/100 ML VIAL IV ONE (10:41)
[2016-10-11] MEDS ORDERED: SODIUM BICARBONATE 50 MEQ/50 ML SYRINGE IV ONE (10:41)
[2016-10-11] MEDS ORDERED: DEXTROSE 5% KCL 20 MEQ 20 MEQ/1,000 ML BAG IV ONE (10:41)
[2016-10-11] MEDS ORDERED: PHENYLEPHRINE DRIP 20 MG/250 ML PREMIX IV ONE (10:41)
[2016-10-11] MEDS ORDERED: HEPARIN 10,000 UNIT/10 ML VIAL ONE (10:42)
[2016-10-11] MEDS ORDERED: PROTAMINE SULFATE 250 MG/25 ML VIAL IV ONE (10:42)
[2016-10-11] MEDS ORDERED: MANNITOL 12.5 GM/50 ML VIAL IV ONE (10:42)
[2016-10-11] MEDS ORDERED: FUROSEMIDE 20 MG/2 ML VIAL ONE (10:42)
[2016-10-11] MEDS ORDERED: methylPREDNISolone SOD SUC 1,000 MG/8 ML VIAL ONE (10:42)
[2016-10-11] MEDS ORDERED: MAGNESIUM SULFATE 1 GM/2 ML VIAL ONE (10:42)
--- NOTE | 2016-10-11 11:02 | Anesthesia Procedures ---
Anesthesia Procedures - Central Venous Insert Monitors Applied: pulse oximetry, EKG, BP cuff, oxygen via MSBT: pulse oximetry, EKG, BP cuff, oxygen via Procedure: after sterile technique was performed as outlined above, , ultrasound guidance was used to identify vessel, 18G introducer needle was passed into vessel under direct visualizatio, triple lumen catheter was passed over guidewire without difficulty, catheter sutured into place and the ports flushed with NS/hepflush, sterlie dressing applied including the antibiotic disc , vital signs were stable throughout procedure, no apparent complications were noted, CXR to be obtained and read Ultrasound used: identify patency vessel Vein Cannulated: right internal juglar
[2016-10-11] MEDS: SODIUM CHLORIDE 0.45% 1,000 ML IV SCH ×2 (11:09)
[2016-10-11] MEDS ORDERED: DEXTROSE 50% 25 GM/50 ML VIAL IV PRN ×2 (11:12)
[2016-10-11] MEDS ORDERED: POTASSIUM CHLORIDE RIDER 10 MEQ in PREMIX 1 EACH IV PRN (11:12)
[2016-10-11] MEDS ORDERED: PHENYLEPHRINE DRIP 40 MG/250 ML PREMIX IV PRN (11:12)
[2016-10-11] MEDS ORDERED: MORPHINE 10 MG/1 ML VIAL IV PRN (11:12)
[2016-10-11] MEDS ORDERED: VECURONIUM 10 MG VIAL IV PRN ×2 (11:12)
[2016-10-11] MEDS ORDERED: ALBUMIN 5% 12.5 GM in PREMIX 1 EACH IV PRN (11:12)
[2016-10-11] MEDS ORDERED: ONDANSETRON 4 MG/2 ML VIAL IV PRN (11:12)
[2016-10-11] MEDS ORDERED: MAGNESIUM SULF RIDER 4 GM in PREMIX 1 EACH IV PRN (11:12)
[2016-10-11] MEDS ORDERED: INSULIN REGULAR 100 UNIT/ML IV ONE (11:12)
[2016-10-11] MEDS ORDERED: MORPHINE 2 MG/1 ML SYRINGE IV PRN (11:12)
[2016-10-11] MEDS ORDERED: LACTATED RINGERS 250 ML IV PRN (11:12)
[2016-10-11] MEDS ORDERED: MAGNESIUM SULF RIDER 2 GM in PREMIX 1 EACH IV PRN (11:12)
[2016-10-11] MEDS ORDERED: CALCIUM CHLORIDE 1,000 MG/10 ML SYRINGE IV PRN (11:12)
[2016-10-11] MEDS ORDERED: ACETAMINOPHEN 650 MG SUPP RECTAL PRN (11:12)
[2016-10-11] MEDS: NITROPRUSSIDE 100 MG in DEXTROSE 5% 250 ML IV PRN (11:15)
--- NOTE | 2016-10-11 11:19 | Operative Note ---
Date of procedure: 10/11/16 Pre-op diagnosis: Coronary artery disease Post-op diagnosis: same Procedure: Procedure: Coronary bypass grafting 2 with saphenous vein graft to the anterior descending and right posterior descending coronary arteries. Findings: Patient is a 56-year-old lady who was referred for [facility] for bypass surgery. She has had previous stenting procedures in both her right and left coronary systems. The time of surgery left ventricular function was noted to be essentially normal. Grafts were placed to the distal left anterior descending and distal right posterior descending coronary arteries. The position of the graft was necessitated by the presence of stenting procedures previously performed in the proximal portion of the vessels. Accordingly saphenous vein grafts were elected because of inadequate length of the internal mammary arteries to reach the designated sites of anastomosis. Patient tolerated procedure well and was returned to recovery in satisfactory condition. Procedure: Patient was brought to the operating room and placed on the operating table in supine position. After satisfactory induction of general anesthesia the chest abdomen and legs were prepped and draped in sterile fashion. Greater saphenous vein was harvested from the right lower leg and prepared is an arterial graft. A standard sternotomy incision was made and the sternum was divided and the heart suspended in a pericardial cradle. Patient was prepared for cardiopulmonary bypass with systemic heparinization and cannulation of the ascending aorta and right atrium. Cardiopulmonary bypass was begun and aorta was crossclamped and the heart arrested with cardioplegia solution injected into the aortic root. Heart was protected during the period of crossclamping with topical saline slush. Distal anastomoses were constructed as noted above and then the aorta was unclamped reestablishing cardiac action. Proximal anastomoses were constructed between the inflow and as of the saphenous vein graft in the ascending aorta and then the patient was weaned from cardiopulmonary bypass without difficulty. Heparin effect was reversed with protamine and decannulation carried out in a defects in the ascending aorta and right atrium closed with 3-0 Prolene. Operative field was inspected for hemostasis and this was considered adequate incision was closed with interrupted stainless steel wire and the sternum and 0 Monopril in the presternal fascia. Skin was closed with 3-0 subcuticular Monocryl. 2 chest tubes were left in the anterior mediastinum and brought out through separate stab incisions. Sterile dressings were applied patient was returned to recovery in satisfactory condition. Surgeon / Physician: Luis Melendez Results - Labs CBC & BMP: 10/11/16 10:16 10/10/16 18:10 Discharge Plan - Discharge Medications No Action Isosorbide Mononitrate [Isosorbide Mononitrate ER] 60 mg PO DAILY Nitroglycerin Sl Tab [Nitrostat] 0.4 mg SL Q5M PRN PRN Reason: Chest Pain Lisinopril 10 mg PO DAILY Tizanidine HCl [Tizanidine HCl] 4 mg PO BEDTIME Ticagrelor [Brilinta] 90 mg PO BID Rosuvastatin [Crestor] 20 mg PO BEDTIME Insulin Degludec [Tresiba Flextouch U-100] 60 unit SUBCUT QAM Furosemide [Furosemide] 80 mg PO DAILY Icosapent Ethyl [Vascepa] 2 capsule PO BID carBAMazepine XR TAB [TEGretol XR] 200 mg PO BID Sertraline [Zoloft] 100 mg PO DAILY Saxagliptin HCl [Onglyza] 5 mg PO DAILY Insulin Aspart [NovoLOG FlexPen] 20 unit SUBCUT TID hydrALAZINE TAB [Apresoline Tab] 1.5 tablet PO TID Gabapentin [Gabapentin] 300 mg PO BID Folic Acid Tab 1 mg PO DAILY Fluticasone 50 Mcg Nasal [place] [Flonase Nasal [place]] 2 spray BOTH NARES DAILY Amlodipine Besylate [Amlodipine Besylate] 10 mg PO DAILY Albuterol Sulfate [Albuterol Neb] 2.5 mg RESP TX Q6HR Hydrocodone/Acetaminophen [Hydrocodon-Acetaminophn 10-325] 1 tablet PO Q4HR Carvedilol 12.5 mg PO BID Eszopiclone [Lunesta] 3 mg PO BEDTIME Aspirin Chew Tab 81 mg PO DAILY Evolocumab [Repatha Sureclick] 140 mg SUBCUT DIRECTED metOLazone [Metolazone] 5 mg PO DAILY Duloxetine HCl [Duloxetine] 30 mg PO DAILY - Follow Up or Referral - Forms/Instructions
[2016-10-11] MEDS ORDERED: PROTAMINE SULFATE 50 MG/5 ML VIAL IV ONE ×2 (11:22→11:27)
[2016-10-11 11:44] LABS: Basophils % 0.1 % (0.0-0.8); Eosinophils # 0.1 10*3/uL (0.0-0.87); Hematocrit 26.1 VOL% (35.7-47.0); Hemoglobin 8.9 GM/DL (12.0-16.0); Immature Granulocytes % 1.2 %; Immature Granulocytes Absolute 0.09 #; Lymphocytes # 1.5 10*3/uL (1.4-4.0); Lymphocytes % 20.2 % (21.3-54.2); Mean Corpuscular HGB Conc 34.1 GM/DL (32-36); Mean Corpuscular Hemoglobin 32 PG (27-34); Mean Corpuscular Volume 93.5 FL (87-102); Mean Platelet Volume 10.9 FL (9.6-12.0); Monocytes # 0.5 10*3/uL (0.11-0.8); Monocytes % 6.4 % (1.7-12.7); Neutrophils # 5.2 10*3/uL (1.4-7.4); Neutrophils % 71.1 % (38.7-73.9); Platelet Count 159 T/CUMM (130-400); Red Blood Count 2.79 MC/CUMM (3.8-5.5); Red Cell Distribution Width 15.4 % (9.3-17.3); White Blood Count 7.3 T/CUMM (4-12)
[2016-10-11 11:46] LABS: ABG Base Excess 1.6 MMOL/L (-2.5-2.5); ABG HCO3 25.9 MMOL/L (20-26); ABG Oxygen Saturation 99.2 % (95-100); ABG PCO2 40.8 MM HG (35-48); ABG PH 7.416 (7.35-7.45); ABG TCO2 24.2 MMOL/L (23-27); Glucose Heart Surgery 250 MG/DL (74-106); Hematocrit Heart Surgery 27.1 PERCENT (37-47); Hemoglobin Heart Surgery 8.7 G/DL (12.0-16.0); Potassium Heart/CVR 3.9 MMOL/L (3.5-5.1)
[2016-10-11] MEDS: LACTATED RINGERS 1,000 ML IV PRN ×2 (12:00→14:11)
[2016-10-11 12:01] LABS: INR 1.2; PT Patient Result 12.7 SECS; Partial Thromboplastin Time 26.3 SECS (0-40)
[2016-10-11] MEDS: MIDAZOLAM 2 MG/2 ML VIAL IV PRN ×3 (12:09→22:14)
[2016-10-11 12:17] LABS: Alanine Aminotransferase 23 U/L (13-56); Albumin 2.7 G/DL (3.4-5.0); Alkaline Phosphatase 66 U/L (45-117); Aspartate Amino Transferase 21 U/L (0-37); Bilirubin,Total < 0.39 MG/DL (0.2-1.0); Blood Urea Nitrogen 55 MG/DL (7-18); Calcium 8.9 MG/DL (8.5-10.1); Glucose 256 MG/DL (74-106); Magnesium 2.1 MG/DL (1.8-2.4); Osmolality,Calculated 304.3 MOS/KG (273-304); Potassium 4.2 MMOL/L (3.5-5.1); Sodium 141 MMOL/L (136-145); Total Protein 5.3 G/DL (6.4-8.3)
[2016-10-11 12:26] LABS: Eosinophils 1 % (0-10); Hypochromasia 1+; Lymphocytes 24 % (20-55); Microcytosis 1+; Platelet Estimate Adequate; Segmented Neutrophils 63 % (50-85); Total Cells Counted 100
[2016-10-11] MEDS: POTASSIUM CHLORIDE RIDER 20 MEQ in PREMIX 1 EACH IV PRN (12:30)
[2016-10-11] MEDS ORDERED: SEVOFLURANE 1 UNIT/15 MINUTE INH ONE (12:34)
[2016-10-11] MEDS ORDERED: MIDAZOLAM 10 MG/2 ML VIAL ONE (12:34)
[2016-10-11] MEDS ORDERED: SODIUM CHLORIDE 0.9% 250 ML IV ONE (12:34)
[2016-10-11] MEDS ORDERED: LACTATED RINGERS 1,000 ML IV ONE (12:34)
[2016-10-11] MEDS ORDERED: SUFentanil 250 MCG/5 ML AMP ONE (12:34)
[2016-10-11] MEDS ORDERED: SODIUM CHLORIDE 0.9% 2,000 ML IV ONE (12:34)
[2016-10-11 12:42] LABS: CKMB % 4.3 %
[2016-10-11 12:44] LABS: Troponin I Only 1.74 NG/ML (0.00-0.045)
--- NOTE | 2016-10-11 12:45 | XRay Report ---
XR chest 1V portable Indication: Line placement Comparison: Chest x-ray 10/09/2016 Technique: Portable AP chest was performed. Findings: Interval sternotomy is demonstrated. Airspace disease left lung base likely reflects atelectasis. Sternal wires are now present. Endotracheal tube terminates at the level of the aortic knob. NG tube is present which terminates within the gastric fundus beneath the left hemidiaphragm. Left-sided chest tube as well as mediastinal drain are present. No pneumothorax is present. Cardiac pacemaker is present. Lookout-Alireza catheter has tip parked within the right pulmonary artery. Impression: 1. Interval sternotomy. Left lung base demonstrates evidence of atelectasis. 10/11/2016 12:41 PM PROCEDURE INTERPRETED AT [facility] DEPARTMENT OF RADIOLOGY Final Report Signed by: Dr. Earl Davies
[2016-10-11] MEDS: MIDAZOLAM 10 MG/2 ML VIAL IV PRN ×3 (13:00→20:00)
[2016-10-11] MEDS: INSULIN REGULAR DRIP 100 ML IV SCH ×2 (13:23→22:54)
[2016-10-11 14:15] LABS: ABG Base Excess 1.2 MMOL/L (-2.5-2.5); ABG HCO3 25.5 MMOL/L (20-26); ABG Oxygen Saturation 99.4 % (95-100); ABG PCO2 38.3 MM HG (35-48); ABG PH 7.429 (7.35-7.45); ABG TCO2 23.2 MMOL/L (23-27); Glucose Heart Surgery 267 MG/DL (74-106); Hematocrit Heart Surgery 29.2 PERCENT (37-47); Hemoglobin Heart Surgery 9.4 G/DL (12.0-16.0)
[2016-10-11] MEDS: INSULIN REGULAR 100 UNIT/ML IV PRN ×3 (15:11→21:07)
[2016-10-11] MEDS: ICOSAPENT ETHYL PO SCH ×2 (16:55→16:57)
[2016-10-11] MEDS: EVOLOCUMAB 140 MG SUBCUT SCH ×3 (16:55→16:57)
[2016-10-11] MEDS ORDERED: methylPREDNISolone SOD SUC 125 MG/2 ML VIAL IV ONE (18:37)
[2016-10-11] MEDS ORDERED: ALBUTEROL 2.5 MG/3 ML NEB RESP TX PRN (18:37)
--- NOTE | 2016-10-11 18:44 | Hospitalist Progress Note ---
Assessment and Plan (1) S/P CABG x 2 Status: Acute Assessment and plan: Now cabg Current Visit: Yes (2) Diabetes Status: Chronic Current Visit: Yes Qualifiers: Diabetes mellitus type: type 2 Chronic kidney disease stage: stage 2 (mild ) (3) Coronary artery disease Status: Chronic Current Visit: Yes Qualifiers: Coronary Disease-Associated Artery/Lesion type: bypass graft (4) Hypertension Status: Chronic Current Visit: Yes Qualifiers: Hypertension type: essential hypertension Qualified Code(s): I10 - Essential (primary) hypertension (5) Diabetes Status: Chronic Assessment and plan: Continue to monitor and treat with sliding scale insulin. Current Visit: Yes Qualifiers: Diabetes mellitus type: type 2 Hospitalist: Subjective Interval history: The patient is now s/p 2 vessel bypass. The patient is resting and recovery. She has been hemodynamically stable. She has received 5 units packed red blood cells. Glucoses have been in the 200s. Exam - Constitutional Vitals: Period Temp Pulse Resp BP Sys/Hoang Pulse Ox Last 24 Hr 97.0 F-99.5 F 60-81 10-20 102-176/44-85 96-100 General appearance: over weight, other (Patient on a ventilator) - Head Head exam: Present: normal inspection - ENT ENT exam: Present: normal exam - Neck Neck exam: Present: normal inspection - Respiratory Respiratory exam: Present: clear to auscultation bilaterally, other (Patient is ventilated) - Cardiovascular Cardiovascular exam: Present: regular rate and rhythm - GI/Abdominal GI/Abdominal exam: Present: normal bowel sounds - Extremities Exam Extremities exam: Present: normal inspection Results - Labs CBC & BMP: 10/11/16 11:40 10/11/16 11:40 Quality Measures - VTE Contraindication to Pharmacological VTE Prophylaxis: High Risk of Bleeding
[2016-10-11 18:53] LABS: ABG Base Excess 2.4 MMOL/L (-2.5-2.5); ABG HCO3 26.5 MMOL/L (20-26); ABG Oxygen Saturation 98.6 % (95-100); ABG PCO2 28.6 MM HG (35-48); ABG PH 7.536 (7.35-7.45); ABG TCO2 21.6 MMOL/L (23-27); Glucose Heart Surgery 229 MG/DL (74-106); Hematocrit Heart Surgery 34.1 PERCENT (37-47); Hemoglobin Heart Surgery 11.1 G/DL (12.0-16.0); Potassium Heart/CVR 4.2 MMOL/L (3.5-5.1)
[2016-10-11] MEDS: CHLORHEXIDINE 0.12% ORAL RINSE 60 ML BOTTLE SWISH/SPIT SCH (20:31)
[2016-10-12 00:40] LABS: ABG Base Excess 2.1 MMOL/L (-2.5-2.5); ABG HCO3 26.3 MMOL/L (20-26); ABG Oxygen Saturation 98.2 % (95-100); ABG PCO2 39.2 MM HG (35-48); ABG PH 7.436 (7.35-7.45); ABG TCO2 23.6 MMOL/L (23-27); Glucose Heart Surgery 152 MG/DL (74-106); Hematocrit Heart Surgery 34.1 PERCENT (37-47); Hemoglobin Heart Surgery 11.1 G/DL (12.0-16.0); Potassium Heart/CVR 3.6 MMOL/L (3.5-5.1)
[2016-10-12] MEDS: POTASSIUM CHLORIDE RIDER 20 MEQ in PREMIX 1 EACH IV PRN ×3 (00:49→06:07)
[2016-10-12] MEDS: NITROPRUSSIDE 100 MG in DEXTROSE 5% 250 ML IV PRN ×2 (01:18→04:51)
[2016-10-12] MEDS ORDERED: FUROSEMIDE 40 MG/4 ML VIAL IV ONE (03:45)
[2016-10-12 04:04] LABS: Basophils % 0.1 % (0.0-0.8); Hematocrit 31.9 VOL% (35.7-47.0); Hemoglobin 11.1 GM/DL (12.0-16.0); Immature Granulocytes % 0.6 %; Immature Granulocytes Absolute 0.07 #; Lymphocytes # 1.3 10*3/uL (1.4-4.0); Lymphocytes % 11.1 % (21.3-54.2); Mean Corpuscular HGB Conc 34.8 GM/DL (32-36); Mean Corpuscular Hemoglobin 32 PG (27-34); Mean Corpuscular Volume 91.1 FL (87-102); Mean Platelet Volume 11.4 FL (9.6-12.0); Monocytes # 1.1 10*3/uL (0.11-0.8); Monocytes % 9.7 % (1.7-12.7); Neutrophils # 9.2 10*3/uL (1.4-7.4); Neutrophils % 78.5 % (38.7-73.9); Platelet Count 216 T/CUMM (130-400); Red Cell Distribution Width 15.9 % (9.3-17.3); White Blood Count 11.7 T/CUMM (4-12)
[2016-10-12 04:16] LABS: ABG Base Excess 2.7 MMOL/L (-2.5-2.5); ABG HCO3 26.9 MMOL/L (20-26); ABG Oxygen Saturation 98.8 % (95-100); ABG PCO2 42.7 MM HG (35-48); ABG PH 7.418 (7.35-7.45); ABG TCO2 24.7 MMOL/L (23-27); Glucose Heart Surgery 103 MG/DL (74-106); Potassium Heart/CVR 4.5 MMOL/L (3.5-5.1)
[2016-10-12 04:54] LABS: Alanine Aminotransferase 26 U/L (13-56); Albumin 2.8 G/DL (3.4-5.0); Alkaline Phosphatase 61 U/L (45-117); Aspartate Amino Transferase 44 U/L (0-37); Bilirubin,Direct < 0.10 MG/DL (0.0-0.20); Bilirubin,Total < 0.39 MG/DL (0.2-1.0); Blood Urea Nitrogen 51 MG/DL (7-18); Calcium 8.5 MG/DL (8.5-10.1); Glucose 98 MG/DL (74-106); Magnesium 2.1 MG/DL (1.8-2.4); Potassium 4.6 MMOL/L (3.5-5.1); Sodium 143 MMOL/L (136-145); Total Protein 5.8 G/DL (6.4-8.3)
[2016-10-12 05:02] LABS: ABG Base Excess -6.9 MMOL/L (-2.5-2.5); ABG HCO3 18.7 MMOL/L (20-26); ABG Oxygen Saturation 96.5 % (95-100); ABG PCO2 45.4 MM HG (35-48); ABG PH 7.255 (7.35-7.45); ABG PO2 89.8 MM HG (80-95); ABG TCO2 18.6 MMOL/L (23-27); Glucose Heart Surgery 97 MG/DL (74-106); Hematocrit Heart Surgery 32.4 PERCENT (37-47); Hemoglobin Heart Surgery 10.5 G/DL (12.0-16.0)
[2016-10-12 05:28] LABS: CKMB % 1.8 %
[2016-10-12 05:30] LABS: Troponin I Only 4.61 NG/ML (0.00-0.045)
[2016-10-12 05:47] LABS: ABG Base Excess -1.2 MMOL/L (-2.5-2.5); ABG HCO3 23.4 MMOL/L (20-26); ABG Oxygen Saturation 97.7 % (95-100); ABG PCO2 44.5 MM HG (35-48); ABG PH 7.349 (7.35-7.45); ABG TCO2 22.2 MMOL/L (23-27); Glucose Heart Surgery 101 MG/DL (74-106); Hematocrit Heart Surgery 33.3 PERCENT (37-47); Hemoglobin Heart Surgery 10.8 G/DL (12.0-16.0); Potassium Heart/CVR 4.1 MMOL/L (3.5-5.1)
[2016-10-12] MEDS: INSULIN REGULAR DRIP 100 ML IV SCH ×2 (06:00→11:47)
--- NOTE | 2016-10-12 07:25 | EKG Report ---
Stationary ECG Study [facility] Test Date: 10/12/2016 7:26:05 AM Pat Name: JESSICA HOUSER Department: Room: 104 Gender: F Card Stripper: : 1960 Requested by: Luis La Order Number: [id number] Reading MD: SUSAN GUTIERREZ Intervals [place] Rate: 60 P: 104 MN: 185 QRS: -7 QRSD: 113 T: 71 QT: 465 QTc: 465 Interpretive Statements ELECTRONIC [employer]TRIAL PACEMAKER IVCD Poor R wave progression Electronically Signed On 10-12-16 07:49:42 CDT by SUSAN GUTIERREZ [email or web address]
[2016-10-12] MEDS: CEFUROXIME INJ 1,500 MG in SODIUM CHLORIDE 0.9% 100 ML IV SCH (07:28)
--- NOTE | 2016-10-12 08:36 | Cardiothoracic Progress Note ---
Cardiothoracic Subjective Interval history: Patient is awake alert and extubated. Vital signs have been stable through the night and this morning her cardiac output is 5.4 L/min. She is breathing comfortably and her blood gases are satisfactory postextubation. Chest tube drainage is minimal and her chest tubes are removed. Urine output has been good and her creatinine is within normal limits. Overall her progress is satisfactory and I believe that she can be transferred to telemetry later this morning. Exam (Progress Note) - Constitutional Vitals: Period Temp Pulse Resp BP Sys/Hoang Pulse Ox Last 24 Hr 97.0 F-99.5 F 60-80 6-19 102-176/44-85 95-100 Result/EKG - Labs CBC & BMP: 10/12/16 04:00 10/12/16 04:36 Labs: Laboratory Results - last 24 hr 10/10/16 10/11/16 10/11/16 03:14 09:18 10:16 WBC RBC Hgb Hct MCV MCH MCHC RDW Plt Count 103 L D MPV Neut % (Auto) Lymph % (Auto) [facility] % (Auto) Eos % (Auto) Baso % (Auto) Neut # (Auto) Lymph # (Auto) [facility] # (Auto) Eos # (Auto) Baso # (Auto) Total Counted Immature Gran % Nucleated RBC % Immature Gran # Segmented Neutrophils Lymphocytes Monocytes Eosinophils Basophils Nucleated RBCs # Platelet Estimate Hypochromasia Microcytosis INR PT Patient/Control Mix Circ Anticoag PTT Patient Temperature 34 ABG pH ABG pH at Pt Temp 7.387 ABG pCO2 ABG pCO2 at Pt Temp 44.8 ABG pO2 ABG pO2 at Pt Temp 29.9 ABG HCO3 ABG Total CO2 ABG O2 Saturation ABG Base Excess ABG Sodium 133 L VBG pH 7.345 VBG pCO2 51.8 H VBG pO2 36.9 VBG HCO3 25.9 VBG Total CO2 26.9 VBG O2 Saturation 66.0 VBG Base Excess 2.1 Hemoglobin 7.0 L Hematocrit 21.8 L Potassium 5.2 H Glucose 367 H Ionized Calcium FiO2 80.00 Sodium Chloride Carbon Dioxide Anion Gap BUN Creatinine GFR Calculation BUN/Creatinine Ratio POC Glucose Calculated Osmolality Calcium Venous Ioniz Calcium 1.01 L Magnesium Total Bilirubin Direct Bilirubin AST ALT Alkaline Phosphatase Total Creatine Kinase CK-MB (CK-2) CK and CKMB Interp Troponin I Total Protein Albumin Globulin Albumin/Globulin Ratio Blood Type O POSITIVE Antibody Screen Negative Crossmatch See Detail 10/11/16 10/11/16 10/11/16 10:24 11:40 11:40 WBC 7.3 RBC 2.79 L Hgb 8.9 L Hct 26.1 L MCV 93.5 MCH 32 MCHC 34.1 RDW 15.4 Plt Count 159 D MPV 10.9 Neut % (Auto) 71.1 Lymph % (Auto) 20.[address] % (Auto) 6.4 Eos % (Auto) 1.0 Baso % (Auto) 0.1 Neut # (Auto) 5.2 Lymph # (Auto) 1.5 [facility] # (Auto) 0.5 Eos # (Auto) 0.1 Baso # (Auto) 0.0 Total Counted 100 Immature Gran % 1.2 Nucleated RBC % 0.0 Immature Gran # 0.09 Segmented Neutrophils 63 Lymphocytes 24 Monocytes 11 Eosinophils 1 Basophils 1.0 H Nucleated RBCs # 0.00 Platelet Estimate Adequate Hypochromasia 1+ Microcytosis 1+ INR 1.2 PT Patient/Control Mix 12.7 D Circ Anticoag PTT 26.3 Patient Temperature 37 ABG pH 7.369 ABG pH at Pt Temp 7.369 ABG pCO2 45.7 ABG pCO2 at Pt Temp 45.7 ABG pO2 423.0 H ABG pO2 at Pt Temp 423.0 ABG HCO3 25.3 ABG Total CO2 24.8 ABG O2 Saturation 100.0 ABG Base Excess 0.9 ABG Sodium 137 VBG pH VBG pCO2 VBG pO2 VBG HCO3 VBG Total CO2 VBG O2 Saturation VBG Base Excess Hemoglobin 7.6 L Hematocrit 23.8 L Potassium 4.3 Glucose 298 H Ionized Calcium 1.27 FiO2 Sodium Chloride Carbon Dioxide Anion Gap BUN Creatinine GFR Calculation BUN/Creatinine Ratio POC Glucose Calculated Osmolality Calcium Venous Ioniz Calcium Magnesium Total Bilirubin Direct Bilirubin AST ALT Alkaline Phosphatase Total Creatine Kinase CK-MB (CK-2) CK and CKMB Interp Troponin I Total Protein Albumin Globulin Albumin/Globulin Ratio Blood Type Antibody Screen Crossmatch 10/11/16 10/11/16 10/11/16 11:40 11:40 11:45 WBC RBC Hgb Hct MCV MCH MCHC RDW Plt Count MPV Neut % (Auto) Lymph % (Auto) [facility] % (Auto) Eos % (Auto) Baso % (Auto) Neut # (Auto) Lymph # (Auto) [facility] # (Auto) Eos # (Auto) Baso # (Auto) Total Counted Immature Gran % Nucleated RBC % Immature Gran # Segmented Neutrophils Lymphocytes Monocytes Eosinophils Basophils Nucleated RBCs # Platelet Estimate Hypochromasia Microcytosis INR PT Patient/Control Mix Circ Anticoag PTT Patient Temperature ABG pH 7.416 ABG pH at Pt Temp ABG pCO2 40.8 ABG pCO2 at Pt Temp ABG pO2 134.0 H ABG pO2 at Pt Temp ABG HCO3 25.9 ABG Total CO2 24.2 ABG O2 Saturation 99.2 ABG Base Excess 1.6 ABG Sodium VBG pH VBG pCO2 VBG pO2 VBG HCO3 VBG Total CO2 VBG O2 Saturation VBG Base Excess Hemoglobin 8.7 L Hematocrit 27.1 L Potassium 4.2 3.9 Glucose 256 H 250 H Ionized Calcium FiO2 Sodium 141 Chloride 104 Carbon Dioxide 28 Anion Gap 13.2 BUN 55 H Creatinine 1.60 H GFR Calculation 42 BUN/Creatinine Ratio 34.00 H POC Glucose Calculated Osmolality 304.3 H Calcium 8.9 Venous Ioniz Calcium Magnesium 2.1 Total Bilirubin < 0.39 Direct Bilirubin AST 21 ALT 23 Alkaline Phosphatase 66 Total Creatine Kinase 230 H CK-MB (CK-2) 10.0 H CK and CKMB Interp 4.3 Troponin I 1.740 H Total Protein 5.3 L Albumin 2.7 L Globulin 2.6 Albumin/Globulin Ratio 1.0 L Blood Type Antibody Screen Crossmatch 10/11/16 10/11/16 10/11/16 14:09 15:09 16:25 WBC RBC Hgb Hct MCV MCH MCHC RDW Plt Count MPV Neut % (Auto) Lymph % (Auto) [facility] % (Auto) Eos % (Auto) Baso % (Auto) Neut # (Auto) Lymph # (Auto) [facility] [place] # (Auto) Eos # (Auto) Baso # (Auto) Total Counted Immature Gran % Nucleated RBC % Immature Gran # Segmented Neutrophils Lymphocytes Monocytes Eosinophils Basophils Nucleated RBCs # Platelet Estimate Hypochromasia Microcytosis INR PT Patient/Control Mix Circ Anticoag PTT Patient Temperature ABG pH 7.429 ABG pH at Pt Temp ABG pCO2 38.3 ABG pCO2 at Pt Temp ABG pO2 155.0 H ABG pO2 at Pt Temp ABG HCO3 25.5 ABG Total CO2 23.2 ABG O2 Saturation 99.4 ABG Base Excess 1.2 ABG Sodium VBG pH VBG pCO2 VBG pO2 VBG HCO3 VBG Total CO2 VBG O2 Saturation VBG Base Excess Hemoglobin 9.4 L Hematocrit 29.2 L Potassium 4.0 Glucose 267 H Ionized Calcium FiO2 Sodium Chloride Carbon Dioxide Anion Gap BUN Creatinine GFR Calculation BUN/Creatinine Ratio POC Glucose 319 H 273 H Calculated Osmolality Calcium Venous Ioniz Calcium Magnesium Total Bilirubin Direct Bilirubin AST ALT Alkaline Phosphatase Total Creatine Kinase CK-MB (CK-2) CK and CKMB Interp Troponin I Total Protein Albumin Globulin Albumin/Globulin Ratio Blood Type Antibody Screen Crossmatch 10/11/16 10/11/16 10/11/16 17:24 18:49 18:52 WBC RBC Hgb Hct MCV MCH MCHC RDW Plt Count MPV Neut % (Auto) Lymph % (Auto) [facility] [place] % (Auto) Eos % (Auto) Baso % (Auto) Neut # (Auto) Lymph # (Auto) [facility] [place] # (Auto) Eos # (Auto) Baso # (Auto) Total Counted Immature Gran % Nucleated RBC % Immature Gran # Segmented Neutrophils Lymphocytes Monocytes Eosinophils Basophils Nucleated RBCs # Platelet Estimate Hypochromasia Microcytosis INR PT Patient/Control Mix Circ Anticoag PTT Patient Temperature ABG pH 7.536 H ABG pH at Pt Temp ABG pCO2 28.6 L ABG pCO2 at Pt Temp ABG pO2 111.0 H ABG pO2 at Pt Temp ABG HCO3 26.5 H ABG Total CO2 21.6 L ABG O2 Saturation 98.6 ABG Base Excess 2.4 ABG Sodium VBG pH VBG pCO2 VBG pO2 VBG HCO3 VBG Total CO2 VBG O2 Saturation VBG Base Excess Hemoglobin 11.1 L Hematocrit 34.1 L Potassium 4.2 Glucose 229 H Ionized Calcium FiO2 Sodium Chloride Carbon Dioxide Anion Gap BUN Creatinine GFR Calculation BUN/Creatinine Ratio POC Glucose 243 H 148 H Calculated Osmolality Calcium Venous Ioniz Calcium Magnesium Total Bilirubin Direct Bilirubin AST ALT Alkaline Phosphatase Total Creatine Kinase CK-MB (CK-2) CK and CKMB Interp Troponin I Total Protein Albumin Globulin Albumin/Globulin Ratio Blood Type Antibody Screen Crossmatch 10/11/16 10/11/16 10/11/16 20:06 20:10 21:04 WBC RBC Hgb Hct MCV MCH MCHC RDW Plt Count MPV Neut % (Auto) Lymph % (Auto) [facility] % (Auto) Eos % (Auto) Baso % (Auto) Neut # (Auto) Lymph # (Auto) [facility] # (Auto) Eos # (Auto) Baso # (Auto) Total Counted Immature Gran % Nucleated RBC % Immature Gran # Segmented Neutrophils Lymphocytes Monocytes Eosinophils Basophils Nucleated RBCs # Platelet Estimate Hypochromasia Microcytosis INR PT Patient/Control Mix Circ Anticoag PTT Patient Temperature ABG pH ABG pH at Pt Temp ABG pCO2 ABG pCO2 at Pt Temp ABG pO2 ABG pO2 at Pt Temp ABG HCO3 ABG Total CO2 ABG O2 Saturation ABG Base Excess ABG Sodium VBG pH VBG pCO2 VBG pO2 VBG HCO3 VBG Total CO2 VBG O2 Saturation VBG Base Excess Hemoglobin Hematocrit Potassium Glucose Ionized Calcium FiO2 Sodium Chloride Carbon Dioxide Anion Gap BUN Creatinine GFR Calculation BUN/Creatinine Ratio POC Glucose 272 H 250 H 247 H Calculated Osmolality Calcium Venous Ioniz Calcium Magnesium Total Bilirubin Direct Bilirubin AST ALT Alkaline Phosphatase Total Creatine Kinase CK-MB (CK-2) CK and CKMB Interp Troponin I Total Protein Albumin Globulin Albumin/Globulin Ratio Blood Type Antibody Screen Crossmatch 10/11/16 10/11/16 10/12/16 22:13 23:01 00:06 WBC RBC Hgb Hct MCV MCH MCHC RDW Plt Count MPV Neut % (Auto) Lymph % (Auto) [facility] % (Auto) Eos % (Auto) Baso % (Auto) Neut # (Auto) Lymph # (Auto) [facility] # (Auto) Eos # (Auto) Baso # (Auto) Total Counted Immature Gran % Nucleated RBC % Immature Gran # Segmented Neutrophils Lymphocytes Monocytes Eosinophils Basophils Nucleated RBCs # Platelet Estimate Hypochromasia Microcytosis INR PT Patient/Control Mix Circ Anticoag PTT Patient Temperature ABG pH ABG pH at Pt Temp ABG pCO2 ABG pCO2 at Pt Temp ABG pO2 ABG pO2 at Pt Temp ABG HCO3 ABG Total CO2 ABG O2 Saturation ABG Base Excess ABG Sodium VBG pH VBG pCO2 VBG pO2 VBG HCO3 VBG Total CO2 VBG O2 Saturation VBG Base Excess Hemoglobin Hematocrit Potassium Glucose Ionized Calcium FiO2 Sodium Chloride Carbon Dioxide Anion Gap BUN Creatinine GFR Calculation BUN/Creatinine Ratio POC Glucose 217 H 213 H 187 H Calculated Osmolality Calcium Venous Ioniz Calcium Magnesium Total Bilirubin Direct Bilirubin AST ALT Alkaline Phosphatase Total Creatine Kinase CK-MB (CK-2) CK and CKMB Interp Troponin I Total Protein Albumin Globulin Albumin/Globulin Ratio Blood Type Antibody Screen Crossmatch 10/12/16 10/12/16 10/12/16 00:39 01:01 02:06 WBC RBC Hgb Hct MCV MCH MCHC RDW Plt Count MPV Neut % (Auto) Lymph % (Auto) [facility] % (Auto) Eos % (Auto) Baso % (Auto) Neut # (Auto) Lymph # (Auto) [facility] # (Auto) Eos # (Auto) Baso # (Auto) Total Counted Immature Gran % Nucleated RBC % Immature Gran # Segmented Neutrophils Lymphocytes Monocytes Eosinophils Basophils Nucleated RBCs # Platelet Estimate Hypochromasia Microcytosis INR PT Patient/Control Mix Circ Anticoag PTT Patient Temperature ABG pH 7.436 ABG pH at Pt Temp ABG pCO2 39.2 ABG pCO2 at Pt Temp ABG pO2 103.0 H ABG pO2 at Pt Temp ABG HCO3 26.3 H ABG Total CO2 23.6 ABG O2 Saturation 98.2 ABG Base Excess 2.1 ABG Sodium VBG pH VBG pCO2 VBG pO2 VBG HCO3 VBG Total CO2 VBG O2 Saturation VBG Base Excess Hemoglobin 11.1 L Hematocrit 34.1 L Potassium 3.6 Glucose 152 H Ionized Calcium FiO2 Sodium Chloride Carbon Dioxide Anion Gap BUN Creatinine GFR Calculation BUN/Creatinine Ratio POC Glucose 174 H 159 H Calculated Osmolality Calcium Venous Ioniz Calcium Magnesium Total Bilirubin Direct Bilirubin AST ALT Alkaline Phosphatase Total Creatine Kinase CK-MB (CK-2) CK and CKMB Interp Troponin I Total Protein Albumin Globulin Albumin/Globulin Ratio Blood Type Antibody Screen Crossmatch 10/12/16 10/12/16 10/12/16 03:09 04:00 04:00 WBC 11.7 D RBC 3.50 L D Hgb 11.1 L D Hct 31.9 L MCV 91.1 MCH 32 MCHC 34.8 RDW 15.9 Plt Count 216 D MPV 11.4 Neut % (Auto) 78.5 H Lymph % (Auto) 11.[address] % (Auto) 9.7 Eos % (Auto) 0.0 Baso % (Auto) 0.1 Neut # (Auto) 9.2 H Lymph # (Auto) 1.[address] [place] # (Auto) 1.1 H Eos # (Auto) 0.0 Baso # (Auto) 0.0 Total Counted Immature Gran % 0.6 Nucleated RBC % 0.0 Immature Gran # 0.07 Segmented Neutrophils Lymphocytes Monocytes Eosinophils Basophils Nucleated RBCs # 0.00 Platelet Estimate Hypochromasia Microcytosis INR PT Patient/Control Mix Circ Anticoag PTT Patient Temperature ABG pH 7.418 ABG pH at Pt Temp ABG pCO2 42.7 ABG pCO2 at Pt Temp ABG pO2 124.0 H ABG pO2 at Pt Temp ABG HCO3 26.9 H ABG Total CO2 24.7 ABG O2 Saturation 98.8 ABG Base Excess 2.7 H ABG Sodium VBG pH VBG pCO2 VBG pO2 VBG HCO3 VBG Total CO2 VBG O2 Saturation VBG Base Excess Hemoglobin 11.0 L Hematocrit 34.0 L Potassium 4.5 Glucose 103 Ionized Calcium FiO2 Sodium Chloride Carbon Dioxide Anion Gap BUN Creatinine GFR Calculation BUN/Creatinine Ratio POC Glucose 125 H Calculated Osmolality Calcium Venous Ioniz Calcium Magnesium Total Bilirubin Direct Bilirubin AST ALT Alkaline Phosphatase Total Creatine Kinase CK-MB (CK-2) CK and CKMB Interp Troponin I Total Protein Albumin Globulin Albumin/Globulin Ratio Blood Type Antibody Screen Crossmatch 10/12/16 10/12/16 10/12/16 04:01 04:36 04:36 WBC RBC Hgb Hct MCV MCH MCHC RDW Plt Count MPV Neut % (Auto) Lymph % (Auto) [facility] % (Auto) Eos % (Auto) Baso % (Auto) Neut # (Auto) Lymph # (Auto) [facility] # (Auto) Eos # (Auto) Baso # (Auto) Total Counted Immature Gran % Nucleated RBC % Immature Gran # Segmented Neutrophils Lymphocytes Monocytes Eosinophils Basophils Nucleated RBCs # Platelet Estimate Hypochromasia Microcytosis INR PT Patient/Control Mix Circ Anticoag PTT Patient Temperature ABG pH ABG pH at Pt Temp ABG pCO2 ABG pCO2 at Pt Temp ABG pO2 ABG pO2 at Pt Temp ABG HCO3 ABG Total CO2 ABG O2 Saturation ABG Base Excess ABG Sodium VBG pH VBG pCO2 VBG pO2 VBG HCO3 VBG Total CO2 VBG O2 Saturation VBG Base Excess Hemoglobin Hematocrit Potassium 4.6 Glucose 98 Ionized Calcium FiO2 Sodium 143 Chloride 107 Carbon Dioxide 28 Anion Gap 12.6 BUN 51 H Creatinine 1.20 H GFR Calculation 60 BUN/Creatinine Ratio 42.00 H POC Glucose 102 Calculated Osmolality 298.0 Calcium 8.5 Venous Ioniz Calcium Magnesium 2.1 Total Bilirubin < 0.39 Direct Bilirubin < 0.10 AST 44 H ALT 26 Alkaline Phosphatase 61 Total Creatine Kinase 287 H D CK-MB (CK-2) 5.1 H CK and CKMB Interp 1.8 Troponin I 4.610 H D Total Protein 5.8 L Albumin 2.8 L Globulin 3.0 Albumin/Globulin Ratio 0.9 L Blood Type Antibody Screen Crossmatch 10/12/16 10/12/16 10/12/16 04:45 04:56 05:30 WBC RBC Hgb Hct MCV MCH MCHC RDW Plt Count MPV Neut % (Auto) Lymph % (Auto) [facility] % (Auto) Eos % (Auto) Baso % (Auto) Neut # (Auto) Lymph # (Auto) [facility] # (Auto) Eos # (Auto) Baso # (Auto) Total Counted Immature Gran % Nucleated RBC % Immature Gran # Segmented Neutrophils Lymphocytes Monocytes Eosinophils Basophils Nucleated RBCs # Platelet Estimate Hypochromasia Microcytosis INR PT Patient/Control Mix Circ Anticoag PTT Patient Temperature ABG pH 7.255 L 7.349 L ABG pH at Pt Temp ABG pCO2 45.4 44.5 ABG pCO2 at Pt Temp ABG pO2 89.8 100.0 H ABG pO2 at Pt Temp ABG HCO3 18.7 L 23.4 ABG Total CO2 18.6 L 22.2 L ABG O2 Saturation 96.5 97.7 ABG Base Excess -6.9 L -1.2 ABG Sodium VBG pH VBG pCO2 VBG pO2 VBG HCO3 VBG Total CO2 VBG O2 Saturation VBG Base Excess Hemoglobin 10.5 L 10.8 L Hematocrit 32.4 L 33.3 L Potassium 4.0 4.1 Glucose 97 101 Ionized Calcium FiO2 Sodium Chloride Carbon Dioxide Anion Gap BUN Creatinine GFR Calculation BUN/Creatinine Ratio POC Glucose 103 Calculated Osmolality Calcium Venous Ioniz Calcium Magnesium Total Bilirubin Direct Bilirubin AST ALT Alkaline Phosphatase Total Creatine Kinase CK-MB (CK-2) CK and CKMB Interp Troponin I Total Protein Albumin Globulin Albumin/Globulin Ratio Blood Type Antibody Screen Crossmatch Quality Measures - VTE Contraindication to Pharmacological VTE Prophylaxis: High Risk of Bleeding
[2016-10-12] MEDS ORDERED: ALUMINUM/MAGNES/SIMETH MAX STR 30 ML UDCUP PO PRN (08:44)
[2016-10-12] MEDS ORDERED: MAGNESIUM HYDROXIDE SUSP 30 ML UDCUP PO PRN (08:44)
[2016-10-12] MEDS ORDERED: DEXTROSE 50% 25 GM/50 ML VIAL IV PRN ×2 (08:44)
[2016-10-12] MEDS ORDERED: MAGNESIUM SULF RIDER 2 GM in PREMIX 1 EACH IV PRN (08:44)
[2016-10-12] MEDS ORDERED: POTASSIUM CHLORIDE 20 MEQ TABLET PO PRN (08:44)
[2016-10-12] MEDS ORDERED: GLUCAGON 1 MG VIAL IM PRN ×2 (08:44)
[2016-10-12] MEDS ORDERED: ONDANSETRON 4 MG/2 ML VIAL IV PRN (08:44)
[2016-10-12] MEDS ORDERED: MAGNESIUM SULF RIDER 4 GM in PREMIX 1 EACH IV PRN (08:44)
[2016-10-12] MEDS ORDERED: ACETAMINOPHEN 325 MG TABLET PO PRN (08:44)
--- NOTE | 2016-10-12 08:46 | Hospitalist Progress Note ---
Hospitalist: Subjective Interval history: Overnight, there were no issues. Patient note some nausea. It is helped with zofran. She also notes some chronic neck and back pain. She denies any CP or SOB. Exam - Constitutional Vitals: Period Temp Pulse Resp BP Sys/Hoang Pulse Ox Last 24 Hr 97.0 F-99.5 F 60-80 6-19 102-176/44-85 95-100 General appearance: no acute distress, morbidly obese - Head Head exam: Present: normal inspection, normocephalic, atraumatic - Eye Eye exam: Present: EOMI, conjunctival injection Pupils: Present: ZAFAR - ENT ENT exam: Present: normal exam - Respiratory Respiratory exam: Present: clear to auscultation bilaterally (on 2L NC), other ( s/p CABG; dressing covering the incisional site) - Cardiovascular Cardiovascular exam: Present: regular rate and rhythm - GI/Abdominal GI/Abdominal exam: Present: normal bowel sounds (obese) - Extremities Exam Extremities exam: Absent: edema (dressing covered incision site of RLE) - Neurological Exam Neurological exam: Present: oriented X3 (lethargic) Results - Labs CBC & BMP: 10/12/16 04:00 10/12/16 04:36 - Impressions 1. DM: sugars are controlled but patient is on insulin drip. Will transition to lantus and aspart. 2. HTN: bp is controlled; continue current regimen. 3. WILIAN: improving; continue to monitor 4. Anemia s/p transfusion with appropriate transfusion response. Likely from blood loss from surgery. Continue to monitor h/h. 5. ASCAD s/p 2vCABG, 10/11/16: doing well; noted plan for transfer today. On beta danyelle and statin; will eventually need asa and manish-i (was on lisinopril at home) as long as renal functions improve. 6. Chronic back and neck pain: on analgesia. monitor and control. 7. h/o depression: on zoloft Plan: as noted above. Quality Measures - VTE Contraindication to Pharmacological VTE Prophylaxis: High Risk of Bleeding
[2016-10-12] MEDS ORDERED: SODIUM CHLOR 0.45% KCL 20 MEQ 20 MEQ/1,000 ML BAG IV SCH (09:00)
[2016-10-12] MEDS ORDERED: CEFUROXIME INJ 1,500 MG in SODIUM CHLORIDE 0.9% 100 ML IV SCH (09:00)
[2016-10-12] MEDS: cloNIDine 0.1 MG TABLET PO SCH ×3 (09:39→20:47)
[2016-10-12] MEDS: ASPIRIN CHEW 81 MG TABLET PO SCH (09:39)
[2016-10-12] MEDS: PANTOPRAZOLE 40 MG TABLET PO SCH (09:39)
[2016-10-12] MEDS: ERGOCALCIFEROL 50,000 UNIT CAPSULE PO SCH (09:39)
[2016-10-12] MEDS: SERTRALINE 100 MG TABLET PO SCH (09:40)
[2016-10-12] MEDS: DOCUSATE SODIUM 100 MG CAPSULE PO SCH (09:40)
[2016-10-12] MEDS: FOLIC ACID 1 MG TABLET PO SCH (09:40)
[2016-10-12] MEDS: amLODIPine 10 MG TABLET PO SCH (09:40)
[2016-10-12] MEDS: FUROSEMIDE 80 MG TABLET PO SCH (09:40)
[2016-10-12] MEDS: DULoxetine 30 MG CAPSULE PO SCH (09:41)
[2016-10-12] MEDS: GABAPENTIN 300 MG CAPSULE PO SCH ×2 (09:41→20:46)
[2016-10-12] MEDS: predniSONE 5 MG TABLET PO SCH ×2 (09:41→20:46)
[2016-10-12] MEDS: CARVEDILOL 12.5 MG TABLET PO SCH ×2 (09:42→17:04)
[2016-10-12] MEDS: FERROUS SULFATE 325 MG TABLET PO SCH (09:43)
[2016-10-12] MEDS: FLUTICASONE 50 MCG NASAL SPRAY 16 GM BOTTLE BOTH NARES SCH (09:43)
[2016-10-12] MEDS: CHLORHEXIDINE 0.12% ORAL RINSE 60 ML BOTTLE SWISH/SPIT SCH ×3 (09:45→20:49)
[2016-10-12] MEDS: oxyCODONE/ACETAMINOPHEN 5-325 MG TABLET PO PRN ×3 (10:26→23:20)
[2016-10-12] MEDS: KETOROLAC 30 MG/1 ML VIAL IV PRN ×3 (10:27→23:20)
[2016-10-12] MEDS: INSULIN LISPRO 100 UNIT/ML SUBCUT SCH ×3 (10:47→17:04)
[2016-10-12] MEDS ORDERED: INSULIN LISPRO 100 UNIT/ML SUBCUT ONE (10:48)
[2016-10-12] MEDS: SODIUM CHLORIDE 0.45% 1,000 ML IV SCH ×2 (11:46)
[2016-10-12] MEDS ORDERED: predniSONE 5 MG TABLET PO SCH (11:46)
[2016-10-12] MEDS: sitaGLIPtin 100 MG TABLET PO SCH (12:18)
[2016-10-12] MEDS: metOLazone 5 MG TABLET PO SCH (12:18)
--- NOTE | 2016-10-12 12:55 | XRay Report ---
History is chest tube removal Comparison 10/11/2016 Heart is enlarged pacemaker present. [place]-Alireza catheter, ET tube, and NG tube have been removed. Anterior chest tubes have been removed. Right central line remains No pneumothorax seen The left base is underpenetrated. Suspected consolidation and effusion obscuring left diaphragm remains. Impression: 1. Interval removal of the support devices as detailed above with continued consolidation and/or effusion at left lung base PROCEDURE INTERPRETED AT [facility] DEPARTMENT OF RADIOLOGY Final Report Signed by: Dr. Malorie Graham
--- NOTE | 2016-10-12 13:04 | Anesthesia Post-Op ---
Anesthesia Post OP - Post Ansesthetic Evaluation Patient seen in post op: Yes Resp: within normal limits CV: within normal limits Mental: within normal limits Temp: within normal limits [id number]: within normal limits Nausea and Vomiting: within normal limits Pain: within normal limits
[2016-10-12] MEDS: INSULIN GLARGINE 100 UNIT/ML SUBCUT SCH (20:45)
[2016-10-12] MEDS: tiZANidine 4 MG TABLET PO SCH (20:46)
[2016-10-12] MEDS: ROSUVASTATIN 20 MG TABLET PO SCH (20:46)
[2016-10-13] MEDS ORDERED: FUROSEMIDE 40 MG/4 ML VIAL IV ONE (06:00)
[2016-10-13 06:05] LABS: Basophils % 0.3 % (0.0-0.8); Eosinophils % 0.1 % (0.00-10.9); Hematocrit 32.6 VOL% (35.7-47.0); Hemoglobin 10.9 GM/DL (12.0-16.0); Immature Granulocytes % 0.9 %; Immature Granulocytes Absolute 0.07 #; Lymphocytes # 1.3 10*3/uL (1.4-4.0); Lymphocytes % 16.3 % (21.3-54.2); Mean Corpuscular HGB Conc 33.4 GM/DL (32-36); Mean Corpuscular Hemoglobin 31 PG (27-34); Mean Corpuscular Volume 93.9 FL (87-102); Mean Platelet Volume 11.7 FL (9.6-12.0); Monocytes # 0.7 10*3/uL (0.11-0.8); Monocytes % 8.1 % (1.7-12.7); Neutrophils # 5.9 10*3/uL (1.4-7.4); Neutrophils % 74.3 % (38.7-73.9); Red Blood Count 3.47 MC/CUMM (3.8-5.5); Red Cell Distribution Width 15.3 % (9.3-17.3)
[2016-10-13 06:07] LABS: Platelet Count 161 T/CUMM (130-400)
[2016-10-13 06:24] LABS: Eosinophils 1 % (0-10); Hypochromasia 1+; Lymphocytes 22 % (20-55); Metamyelocytes 1 %; Platelet Estimate Normal; Segmented Neutrophils 71 % (50-85); Total Cells Counted 100
[2016-10-13 06:35] LABS: Alanine Aminotransferase 36 U/L (13-56); Albumin 2.7 G/DL (3.4-5.0); Alkaline Phosphatase 90 U/L (45-117); Aspartate Amino Transferase 19 U/L (0-37); Bilirubin,Direct < 0.10 MG/DL (0.0-0.20); Bilirubin,Indirect 0.5 MG/DL (0.0-1.0); Blood Urea Nitrogen 54 MG/DL (7-18); Calcium 8.1 MG/DL (8.5-10.1); Glucose 319 MG/DL (74-106); Magnesium 2.5 MG/DL (1.8-2.4); Osmolality,Calculated 309.1 MOS/KG (273-304); Potassium 4.7 MMOL/L (3.5-5.1); Sodium 142 MMOL/L (136-145); Total Protein 5.6 G/DL (6.4-8.3)
--- NOTE | 2016-10-13 06:54 | XRay Report ---
XR chest 1V portable Indication: Shortness of breath Comparison: Chest x-ray 10/12/2016 Technique: Portable AP chest was performed. Findings: Study is underpenetrated. No gross change in the chest is demonstrated. Impression: 1. No gross change in the underpenetrated chest. 10/13/2016 6:51 AM PROCEDURE INTERPRETED AT [facility] DEPARTMENT OF RADIOLOGY Final Report Signed by: Dr. Earl Davies
--- NOTE | 2016-10-13 07:47 | Cardiothoracic Progress Note ---
Cardiothoracic Subjective Interval history: Patient is awake alert and extubated. She has been transferred to telemetry and appears to be doing well. Vital signs are stable and she is breathing comfortably. I have removed the SHAYNE drain from her leg. We will try to increase her activity some today according to routine postoperative protocol. Exam (Progress Note) - Constitutional Vitals: Period Temp Pulse Resp BP Sys/Hoang Pulse Ox Last 24 Hr 96.8 F-98.2 F 59-63 15-20 102-182/46-98 92-97 Result/EKG - Labs CBC & BMP: 10/13/16 04:30 10/13/16 04:30 Labs: Laboratory Results - last 24 hr 10/10/16 10/12/16 10/12/16 03:14 12:15 15:27 WBC RBC Hgb Hct MCV MCH MCHC RDW Plt Count MPV Neut % (Auto) Lymph % (Auto) [place] % (Auto) Eos % (Auto) Baso % (Auto) Neut # (Auto) Lymph # (Auto) [place] # (Auto) Eos # (Auto) Baso # (Auto) Total Counted Immature Gran % Nucleated RBC % Immature Gran # Segmented Neutrophils Lymphocytes Monocytes Eosinophils Metamyelocytes Nucleated RBCs # Platelet Estimate Hypochromasia Sodium Potassium Chloride Carbon Dioxide Anion Gap BUN Creatinine GFR Calculation BUN/Creatinine Ratio Glucose POC Glucose 269 H 214 H Calculated Osmolality Calcium Magnesium Total Bilirubin Direct Bilirubin Indirect Bilirubin AST ALT Alkaline Phosphatase Total Creatine Kinase CK-MB (CK-2) Troponin I Total Protein Albumin Globulin Albumin/Globulin Ratio Crossmatch See Detail 10/12/16 10/13/16 10/13/16 18:38 00:28 04:16 WBC RBC Hgb Hct MCV MCH MCHC RDW Plt Count MPV Neut % (Auto) Lymph % (Auto) [place] % (Auto) Eos % (Auto) Baso % (Auto) Neut # (Auto) Lymph # (Auto) [place] # (Auto) Eos # (Auto) Baso # (Auto) Total Counted Immature Gran % Nucleated RBC % Immature Gran # Segmented Neutrophils Lymphocytes Monocytes Eosinophils Metamyelocytes Nucleated RBCs # Platelet Estimate Hypochromasia Sodium Potassium Chloride Carbon Dioxide Anion Gap BUN Creatinine GFR Calculation BUN/Creatinine Ratio Glucose POC Glucose 297 H 345 H 343 H Calculated Osmolality Calcium Magnesium Total Bilirubin Direct Bilirubin Indirect Bilirubin AST ALT Alkaline Phosphatase Total Creatine Kinase CK-MB (CK-2) Troponin I Total Protein Albumin Globulin Albumin/Globulin Ratio Crossmatch 10/13/16 10/13/16 04:30 04:30 WBC 8.0 D RBC 3.47 L Hgb 10.9 L Hct 32.6 L MCV 93.9 MCH 31 MCHC 33.4 RDW 15.3 Plt Count 161 D MPV 11.7 Neut % (Auto) 74.3 H Lymph % (Auto) 16.3 L [place] % (Auto) 8.1 Eos % (Auto) 0.1 Baso % (Auto) 0.3 Neut # (Auto) 5.9 Lymph # (Auto) 1.3 L [place] # (Auto) 0.7 Eos # (Auto) 0.0 Baso # (Auto) 0.0 Total Counted 100 Immature Gran % 0.9 Nucleated RBC % 0.0 Immature Gran # 0.07 Segmented Neutrophils 71 Lymphocytes 22 Monocytes 5 Eosinophils 1 Metamyelocytes 1 Nucleated RBCs # 0.00 Platelet Estimate Normal Hypochromasia 1+ Sodium 142 Potassium 4.7 Chloride 104 Carbon Dioxide 30 Anion Gap 12.7 BUN 54 H Creatinine 1.60 H GFR Calculation 43 BUN/Creatinine Ratio 33.00 H Glucose 319 H POC Glucose Calculated Osmolality 309.1 H Calcium 8.1 L Magnesium 2.5 H Total Bilirubin 0.60 Direct Bilirubin < 0.10 Indirect Bilirubin 0.5 AST 19 ALT 36 Alkaline Phosphatase 90 Total Creatine Kinase 273 H CK-MB (CK-2) 2.9 Troponin I 1.760 H D Total Protein 5.6 L Albumin 2.7 L Globulin 2.9 Albumin/Globulin Ratio 0.9 L Crossmatch Quality Measures - VTE Contraindication to Pharmacological VTE Prophylaxis: High Risk of Bleeding Specialty Discharge - Follow Up or Referrals
[2016-10-13] MEDS: INSULIN LISPRO 100 UNIT/ML SUBCUT SCH ×6 (09:06→21:26)
[2016-10-13] MEDS: FERROUS SULFATE 325 MG TABLET PO SCH (09:07)
[2016-10-13] MEDS: amLODIPine 10 MG TABLET PO SCH (09:07)
[2016-10-13] MEDS: FUROSEMIDE 80 MG TABLET PO SCH (09:08)
[2016-10-13] MEDS: ASPIRIN CHEW 81 MG TABLET PO SCH (09:08)
[2016-10-13] MEDS: predniSONE 5 MG TABLET PO SCH ×2 (09:08→21:26)
[2016-10-13] MEDS: sitaGLIPtin 100 MG TABLET PO SCH (09:08)
[2016-10-13] MEDS: DOCUSATE SODIUM 100 MG CAPSULE PO SCH (09:08)
[2016-10-13] MEDS: CARVEDILOL 12.5 MG TABLET PO SCH ×2 (09:08→16:40)
[2016-10-13] MEDS: metOLazone 5 MG TABLET PO SCH (09:08)
[2016-10-13] MEDS: cloNIDine 0.1 MG TABLET PO SCH ×3 (09:09→21:26)
[2016-10-13] MEDS: PANTOPRAZOLE 40 MG TABLET PO SCH (09:09)
[2016-10-13] MEDS: DULoxetine 30 MG CAPSULE PO SCH (09:09)
[2016-10-13] MEDS: ERGOCALCIFEROL 50,000 UNIT CAPSULE PO SCH (09:09)
[2016-10-13] MEDS: SERTRALINE 100 MG TABLET PO SCH (09:09)
[2016-10-13] MEDS: GABAPENTIN 300 MG CAPSULE PO SCH ×2 (09:09→21:26)
[2016-10-13] MEDS: FOLIC ACID 1 MG TABLET PO SCH (09:09)
[2016-10-13] MEDS: FLUTICASONE 50 MCG NASAL SPRAY 16 GM BOTTLE BOTH NARES SCH (09:10)
[2016-10-13] MEDS: CHLORHEXIDINE 0.12% ORAL RINSE 60 ML BOTTLE SWISH/SPIT SCH ×2 (09:10→21:28)
[2016-10-13] MEDS: KETOROLAC 30 MG/1 ML VIAL IV PRN ×3 (09:11→21:25)
[2016-10-13] MEDS ORDERED: GLUCAGON 1 MG VIAL IM PRN (12:49)
[2016-10-13] MEDS ORDERED: DEXTROSE 50% 25 GM/50 ML VIAL IV PRN (12:49)
[2016-10-13] MEDS: oxyCODONE/ACETAMINOPHEN 5-325 MG TABLET PO PRN ×2 (15:05→21:25)
--- NOTE | 2016-10-13 15:46 | Hospitalist Progress Note ---
Assessment and Plan - Time spent with patient Time spent with patient: Less than 30 minutes (1) Sleep apnea Status: Chronic Assessment and plan: Persistent but controlled, continue CPAP machine at night Current Visit: Yes (2) Hypertension Status: Chronic Assessment and plan: Slightly over goal, no adjustments at this time, continue current plan of care. Current Visit: Yes Qualifiers: Hypertension type: essential hypertension Qualified Code(s): I10 - Essential (primary) hypertension (3) Peripheral vascular disease Status: Chronic Current Visit: Yes (4) S/P CABG x 2 Status: Acute Assessment and plan: Cardiothoracic surgery states patient is doing well postop and plans to increase activity today as tolerated. Current Visit: Yes (5) Diabetes Status: Chronic Assessment and plan: Blood glucose not well controlled, has been in the 300s, will start mild sliding scale insulin. Current Visit: Yes Qualifiers: Diabetes mellitus type: type 2 Hospitalist: Subjective Interval history: Patient was coming out of the bathroom as I entered the room, she is ambulating well with walker and now sitting up in chair. She states that she becomes a little bit short of breath when moving about but it seemed to resolve with rest. She is having minimal pain in her right lower extremity at the graft site but is well controlled with analgesics. She is concerned about her blood glucose being high. Patient is alert, vital signs are stable she is in no acute distress. She denies nausea, vomiting, diarrhea, headache, chest pain. Exam - Constitutional Vitals: Period Temp Pulse Resp BP Sys/Hoang Pulse Ox Last 24 Hr 96.8 F-99.2 F 59-63 10-20 130-182/64-85 92-98 General appearance: over weight - Head Head exam: Present: normocephalic - Eye Eye exam: Present: EOMI Pupils: Present: ZAFAR - Respiratory Respiratory exam: Present: clear to auscultation bilaterally - Cardiovascular Cardiovascular exam: Present: regular rate and rhythm - GI/Abdominal GI/Abdominal exam: Present: normal bowel sounds, soft - Extremities Exam Extremities exam: Present: other (Patient has incision site from venous graft harvesting along the medial aspect of her lower leg. Emmanuel noted. Wound is slightly erythematous with no increased warmth and no discharge.) - Neurological Exam Neurological exam: Present: alert, oriented X3 - Psychiatric Psychiatric exam: Present: normal affect - Skin Skin exam: Present: normal color, warm Results - Labs CBC & BMP: 10/13/16 04:30 10/13/16 04:30 Lab Results: I have reviewed the past 24 hour labs Quality Measures - VTE Contraindication to Pharmacological VTE Prophylaxis: High Risk of Bleeding Specialty Discharge - Follow Up or Referrals
[2016-10-13] MEDS: ROSUVASTATIN 20 MG TABLET PO SCH (21:25)
[2016-10-13] MEDS: ZALEPLON 5 MG CAPSULE PO PRN (21:25)
[2016-10-13] MEDS: tiZANidine 4 MG TABLET PO SCH (21:26)
[2016-10-13] MEDS: INSULIN GLARGINE 100 UNIT/ML SUBCUT SCH (21:27)
[2016-10-14] MEDS: oxyCODONE/ACETAMINOPHEN 5-325 MG TABLET PO PRN ×3 (02:59→14:40)
[2016-10-14] MEDS: KETOROLAC 30 MG/1 ML VIAL IV PRN ×2 (03:00→08:54)
[2016-10-14 04:38] LABS: Basophils % 0.3 % (0.0-0.8); Eosinophils # 0.2 10*3/uL (0.0-0.87); Eosinophils % 2.4 % (0.00-10.9); Hematocrit 31.7 VOL% (35.7-47.0); Hemoglobin 10.8 GM/DL (12.0-16.0); Immature Granulocytes % 1.1 %; Immature Granulocytes Absolute 0.07 #; Lymphocytes # 1.3 10*3/uL (1.4-4.0); Lymphocytes % 21.5 % (21.3-54.2); Mean Corpuscular HGB Conc 34.1 GM/DL (32-36); Mean Corpuscular Hemoglobin 32 PG (27-34); Mean Corpuscular Volume 93.5 FL (87-102); Mean Platelet Volume 11.3 FL (9.6-12.0); Monocytes # 0.5 10*3/uL (0.11-0.8); Monocytes % 7.5 % (1.7-12.7); Neutrophils # 4.2 10*3/uL (1.4-7.4); Neutrophils % 67.2 % (38.7-73.9); Platelet Count 146 T/CUMM (130-400); Red Blood Count 3.39 MC/CUMM (3.8-5.5); Red Cell Distribution Width 14.3 % (9.3-17.3); White Blood Count 6.2 T/CUMM (4-12)
[2016-10-14 05:14] LABS: Alanine Aminotransferase 28 U/L (13-56); Albumin 2.6 G/DL (3.4-5.0); Alkaline Phosphatase 99 U/L (45-117); Aspartate Amino Transferase 11 U/L (0-37); Bilirubin,Indirect 0.5 MG/DL (0.0-1.0); Blood Urea Nitrogen 62 MG/DL (7-18); Calcium 8.6 MG/DL (8.5-10.1); Glucose 297 MG/DL (74-106); Magnesium 2.4 MG/DL (1.8-2.4); Potassium 4.7 MMOL/L (3.5-5.1); Sodium 143 MMOL/L (136-145); Total Protein 5.6 G/DL (6.4-8.3)
[2016-10-14 05:16] LABS: Troponin I Only 0.982 NG/ML (0.00-0.045)
--- NOTE | 2016-10-14 06:14 | Cardiothoracic Progress Note ---
Cardiothoracic Subjective Interval history: Patient looks and feels more comfortable today. Vital signs are stable and she is breathing comfortably. Her wounds are clean and dry. Overall her progress seems satisfactory. We will continue to try and increase her activity according to routine postoperative protocol. Exam (Progress Note) - Constitutional Vitals: Period Temp Pulse Resp BP Sys/Hoang Pulse Ox Last 24 Hr 96.1 F-99.2 F 60-61 10-20 103-157/59-77 90-98 Result/EKG - Labs CBC & BMP: 10/14/16 Unknown 10/14/16 04:00 Labs: Laboratory Results - last 24 hr 10/10/16 10/13/16 10/13/16 03:14 04:30 04:30 WBC RBC Hgb Hct MCV MCH MCHC RDW Plt Count MPV Neut % (Auto) Lymph % (Auto) [place] % (Auto) Eos % (Auto) Baso % (Auto) Neut # (Auto) Lymph # (Auto) [place] # (Auto) Eos # (Auto) Baso # (Auto) Total Counted 100 Immature Gran % Nucleated RBC % Immature Gran # Segmented Neutrophils 71 Lymphocytes 22 Monocytes 5 Eosinophils 1 Metamyelocytes 1 Nucleated RBCs # Platelet Estimate Normal Hypochromasia 1+ Sodium 142 Potassium 4.7 Chloride 104 Carbon Dioxide 30 Anion Gap 12.7 BUN 54 H Creatinine 1.60 H GFR Calculation 43 BUN/Creatinine Ratio 33.00 H Glucose 319 H POC Glucose Calculated Osmolality 309.1 H Calcium 8.1 L Magnesium 2.5 H Total Bilirubin 0.60 Direct Bilirubin < 0.10 Indirect Bilirubin 0.5 AST 19 ALT 36 Alkaline Phosphatase 90 Total Creatine Kinase 273 H CK-MB (CK-2) 2.9 Troponin I 1.760 H D Total Protein 5.6 L Albumin 2.7 L Globulin 2.9 Albumin/Globulin Ratio 0.9 L Crossmatch See Detail 10/13/16 10/13/16 10/13/16 07:13 11:23 15:33 WBC RBC Hgb Hct MCV MCH MCHC RDW Plt Count MPV Neut % (Auto) Lymph % (Auto) [place] % (Auto) Eos % (Auto) Baso % (Auto) Neut # (Auto) Lymph # (Auto) [place] # (Auto) Eos # (Auto) Baso # (Auto) Total Counted Immature Gran % Nucleated RBC % Immature Gran # Segmented Neutrophils Lymphocytes Monocytes Eosinophils Metamyelocytes Nucleated RBCs # Platelet Estimate Hypochromasia Sodium Potassium Chloride Carbon Dioxide Anion Gap BUN Creatinine GFR Calculation BUN/Creatinine Ratio Glucose POC Glucose 370 H 307 H 272 H Calculated Osmolality Calcium Magnesium Total Bilirubin Direct Bilirubin Indirect Bilirubin AST ALT Alkaline Phosphatase Total Creatine Kinase CK-MB (CK-2) Troponin I Total Protein Albumin Globulin Albumin/Globulin Ratio Crossmatch 10/13/16 10/14/16 10/14/16 18:45 04:00 Unknown WBC 6.2 RBC 3.39 L Hgb 10.8 L Hct 31.7 L MCV 93.5 MCH 32 MCHC 34.1 RDW 14.3 Plt Count 146 MPV 11.3 Neut % (Auto) 67.2 Lymph % (Auto) 21.5 [place] % (Auto) 7.5 Eos % (Auto) 2.4 Baso % (Auto) 0.3 Neut # (Auto) 4.2 Lymph # (Auto) 1.3 L [place] # (Auto) 0.5 Eos # (Auto) 0.2 Baso # (Auto) 0.0 Total Counted Immature Gran % 1.1 Nucleated RBC % 0.0 Immature Gran # 0.07 Segmented Neutrophils Lymphocytes Monocytes Eosinophils Metamyelocytes Nucleated RBCs # 0.00 Platelet Estimate Hypochromasia Sodium 143 Potassium 4.7 Chloride 103 Carbon Dioxide 32 Anion Gap 12.7 BUN 62 H Creatinine 1.50 H GFR Calculation 46 BUN/Creatinine Ratio 41.00 H Glucose 297 H POC Glucose 296 H Calculated Osmolality 313.0 H Calcium 8.6 Magnesium 2.4 Total Bilirubin 0.60 Direct Bilirubin 0.10 Indirect Bilirubin 0.5 AST 11 ALT 28 Alkaline Phosphatase 99 Total Creatine Kinase 173 D CK-MB (CK-2) 1.9 Troponin I 0.982 H D Total Protein 5.6 L Albumin 2.6 L Globulin 3.0 Albumin/Globulin Ratio 0.8 L Crossmatch Quality Measures - VTE Contraindication to Pharmacological VTE Prophylaxis: High Risk of Bleeding Specialty Discharge - Follow Up or Referrals
--- NOTE | 2016-10-14 07:29 | XRay Report ---
XR chest 1V portable Indication: Shortness of breath Comparison: Chest x-ray 10/13/2016 Technique: Portable AP chest was performed. Findings: Underpenetrated chest. Mild cardiomegaly is stable. Sternal wires are unchanged. Cardiac pacemaker is stable. Right IJ central venous catheter is stable. Blunting of the left costophrenic angle suggesting small left-sided pleural effusion appears stable. Lungs are clear for technique. Impression: 1. Stable interval appearance of the chest. Atelectatic changes within the left lung base as well as small left-sided pleural effusion are suggested. 10/14/2016 7:25 AM PROCEDURE INTERPRETED AT [facility] DEPARTMENT OF RADIOLOGY Final Report Signed by: Dr. Earl Davies
--- NOTE | 2016-10-14 08:44 | Hospitalist Progress Note ---
Assessment and Plan (1) S/P CABG x 2 Status: Acute Assessment and plan: Now cabg and continues to do well. Current Visit: Yes (2) Diabetes Status: Chronic Current Visit: Yes Qualifiers: Diabetes mellitus type: type 2 Chronic kidney disease stage: stage 2 (mild ) (3) Coronary artery disease Status: Chronic Current Visit: Yes Qualifiers: Coronary Disease-Associated Artery/Lesion type: bypass graft (4) Hypertension Status: Chronic Current Visit: Yes Qualifiers: Hypertension type: essential hypertension Qualified Code(s): I10 - Essential (primary) hypertension (5) Diabetes Status: Chronic Assessment and plan: Continue to monitor and treat with sliding scale insulin. Current Visit: Yes Qualifiers: Diabetes mellitus type: type 2 Hospitalist: Subjective Interval history: Patient is resting comfortably. Glucoses have been approximately 300s. Making adjustments to insulin therapy. She is starting to sit up more. No other acute changes. Exam - Constitutional Vitals: Period Temp Pulse Resp BP Sys/Hoang Pulse Ox Last 24 Hr 96.1 F-99.2 F 60-61 10-20 103-157/56-77 90-98 General appearance: over weight - Head Head exam: Present: normal inspection - Neck Neck exam: Present: normal inspection - Respiratory Respiratory exam: Present: clear to auscultation bilaterally - Cardiovascular Cardiovascular exam: Present: regular rate and rhythm - GI/Abdominal GI/Abdominal exam: Present: normal bowel sounds - Extremities Exam Extremities exam: Present: normal inspection Results - Labs CBC & BMP: 10/14/16 Unknown 10/14/16 04:00 Quality Measures - VTE Contraindication to Pharmacological VTE Prophylaxis: High Risk of Bleeding Specialty Discharge - Follow Up or Referrals
[2016-10-14] MEDS: SERTRALINE 100 MG TABLET PO SCH (08:48)
[2016-10-14] MEDS: ERGOCALCIFEROL 50,000 UNIT CAPSULE PO SCH (08:48)
[2016-10-14] MEDS: metOLazone 5 MG TABLET PO SCH (08:49)
[2016-10-14] MEDS: amLODIPine 10 MG TABLET PO SCH (08:49)
[2016-10-14] MEDS: PANTOPRAZOLE 40 MG TABLET PO SCH (08:49)
[2016-10-14] MEDS: FERROUS SULFATE 325 MG TABLET PO SCH (08:49)
[2016-10-14] MEDS: CARVEDILOL 12.5 MG TABLET PO SCH ×2 (08:49→17:12)
[2016-10-14] MEDS: GABAPENTIN 300 MG CAPSULE PO SCH ×2 (08:49→21:45)
[2016-10-14] MEDS: DULoxetine 30 MG CAPSULE PO SCH (08:49)
[2016-10-14] MEDS: FUROSEMIDE 80 MG TABLET PO SCH (08:49)
[2016-10-14] MEDS: predniSONE 5 MG TABLET PO SCH ×2 (08:49→21:47)
[2016-10-14] MEDS: DOCUSATE SODIUM 100 MG CAPSULE PO SCH (08:49)
[2016-10-14] MEDS: sitaGLIPtin 100 MG TABLET PO SCH (08:49)
[2016-10-14] MEDS: FLUTICASONE 50 MCG NASAL SPRAY 16 GM BOTTLE BOTH NARES SCH (08:50)
[2016-10-14] MEDS: INSULIN LISPRO 100 UNIT/ML SUBCUT SCH ×7 (08:50→21:47)
[2016-10-14] MEDS: ASPIRIN CHEW 81 MG TABLET PO SCH (08:50)
[2016-10-14] MEDS: FOLIC ACID 1 MG TABLET PO SCH (08:50)
[2016-10-14] MEDS: CHLORHEXIDINE 0.12% ORAL RINSE 60 ML BOTTLE SWISH/SPIT SCH ×2 (08:51→21:47)
[2016-10-14] MEDS: cloNIDine 0.1 MG TABLET PO SCH ×3 (09:00→21:45)
[2016-10-14] MEDS: ROSUVASTATIN 20 MG TABLET PO SCH (21:45)
[2016-10-14] MEDS: ZALEPLON 5 MG CAPSULE PO PRN (21:45)
[2016-10-14] MEDS: tiZANidine 4 MG TABLET PO SCH (21:45)
[2016-10-14] MEDS: INSULIN GLARGINE 100 UNIT/ML SUBCUT SCH (21:46)
[2016-10-14] MEDS: MORPHINE 2 MG/1 ML SYRINGE IV PRN (21:48)
[2016-10-15] MEDS: MORPHINE 2 MG/1 ML SYRINGE IV PRN (02:14)
--- NOTE | 2016-10-15 06:32 | Cardiothoracic Progress Note ---
Cardiothoracic Subjective Interval history: Patient does not feel quite as well today. She feels as if she overdid it yesterday. She has a considerable amount of chest wall pain this morning. Vital signs are stable and she appears to be breathing comfortably. I have encouraged her to continue to try and increase her activities but to use her commonsense about when she is getting overly tired. Overall her progress does appear to be satisfactory but slow. Exam (Progress Note) - Constitutional Vitals: Period Temp Pulse Resp BP Sys/Hoang Pulse Ox Last 24 Hr 96.0 F-97.6 F 59-65 16-20 123-140/56-77 94-100 Result/EKG - Labs CBC & BMP: 10/14/16 Unknown 10/14/16 04:00 Labs: Laboratory Results - last 24 hr 10/14/16 10/14/16 10/14/16 07:53 12:16 15:23 POC Glucose 357 H 243 H 160 H 10/14/16 10/15/16 19:07 00:13 POC Glucose 298 H 372 H Quality Measures - VTE Contraindication to Pharmacological VTE Prophylaxis: High Risk of Bleeding Specialty Discharge - Follow Up or Referrals
[2016-10-15] MEDS: GABAPENTIN 300 MG CAPSULE PO SCH ×2 (08:30→20:18)
[2016-10-15] MEDS: ERGOCALCIFEROL 50,000 UNIT CAPSULE PO SCH (08:30)
[2016-10-15] MEDS: sitaGLIPtin 100 MG TABLET PO SCH (08:30)
[2016-10-15] MEDS: metOLazone 5 MG TABLET PO SCH (08:31)
[2016-10-15] MEDS: amLODIPine 10 MG TABLET PO SCH (08:31)
[2016-10-15] MEDS: predniSONE 5 MG TABLET PO SCH ×2 (08:31→20:18)
[2016-10-15] MEDS: DULoxetine 30 MG CAPSULE PO SCH (08:31)
[2016-10-15] MEDS: cloNIDine 0.1 MG TABLET PO SCH ×3 (08:31→20:18)
[2016-10-15] MEDS: PANTOPRAZOLE 40 MG TABLET PO SCH (08:31)
[2016-10-15] MEDS: SERTRALINE 100 MG TABLET PO SCH (08:32)
[2016-10-15] MEDS: FUROSEMIDE 80 MG TABLET PO SCH (08:32)
[2016-10-15] MEDS: FOLIC ACID 1 MG TABLET PO SCH (08:32)
[2016-10-15] MEDS: ASPIRIN CHEW 81 MG TABLET PO SCH (08:32)
[2016-10-15] MEDS: CARVEDILOL 12.5 MG TABLET PO SCH ×2 (08:32→17:06)
[2016-10-15] MEDS: DOCUSATE SODIUM 100 MG CAPSULE PO SCH (08:32)
[2016-10-15] MEDS: FERROUS SULFATE 325 MG TABLET PO SCH (08:32)
[2016-10-15] MEDS: INSULIN LISPRO 100 UNIT/ML SUBCUT SCH ×6 (08:53→20:19)
[2016-10-15] MEDS: FLUTICASONE 50 MCG NASAL SPRAY 16 GM BOTTLE BOTH NARES SCH (08:54)
[2016-10-15] MEDS: CHLORHEXIDINE 0.12% ORAL RINSE 60 ML BOTTLE SWISH/SPIT SCH ×2 (08:54→20:29)
[2016-10-15] MEDS: oxyCODONE/ACETAMINOPHEN 5-325 MG TABLET PO PRN ×3 (10:30→22:46)
--- NOTE | 2016-10-15 16:47 | Hospitalist Progress Note ---
Assessment and Plan (1) S/P CABG x 2 Status: Acute Assessment and plan: Now cabg and continues to do well. Current Visit: Yes (2) Diabetes Status: Chronic Current Visit: Yes Qualifiers: Diabetes mellitus type: type 2 Chronic kidney disease stage: stage 2 (mild ) (3) Coronary artery disease Status: Chronic Current Visit: Yes Qualifiers: Coronary Disease-Associated Artery/Lesion type: bypass graft (4) Hypertension Status: Chronic Current Visit: Yes Qualifiers: Hypertension type: essential hypertension Qualified Code(s): I10 - Essential (primary) hypertension (5) Diabetes Status: Chronic Assessment and plan: Continue to monitor and treat with sliding scale insulin. 7030 insulin 10 units in a.m. 5 units in the p.m. Increase Lantus insulin to 25 units subcu p.m. Current Visit: Yes Qualifiers: Diabetes mellitus type: type 2 Hospitalist: Subjective Interval history: The patient is sitting up visiting with her family. She is in a good mood. Glucoses have been ranging from 250-300. Making adjustments in her insulins to include the followin insulin 10 units in a.m. 5 units p.m. Increase Lantus insulin to 25 units subcu p.m. Exam - Constitutional Vitals: Period Temp Pulse Resp BP Sys/Hoang Pulse Ox Last 24 Hr 96.0 F-98.0 F 60-65 16-20 123-149/68-75 94-97 General appearance: over weight - Head Head exam: Present: normal inspection - Eye Eye exam: Present: EOMI - Neck Neck exam: Present: normal inspection - Respiratory Respiratory exam: Present: clear to auscultation bilaterally - Cardiovascular Cardiovascular exam: Present: regular rate and rhythm - GI/Abdominal GI/Abdominal exam: Present: normal bowel sounds - Extremities Exam Extremities exam: Present: normal inspection - Neurological Exam Neurological exam: Present: alert, oriented X3 - Psychiatric Psychiatric exam: Present: normal affect, normal mood - Skin Skin exam: Present: normal color Results - Labs CBC & BMP: 10/14/16 Unknown 10/14/16 04:00 Quality Measures - VTE Contraindication to Pharmacological VTE Prophylaxis: High Risk of Bleeding Specialty Discharge - Follow Up or Referrals
[2016-10-15] MEDS: INSULIN NPH/REGULAR 70/30 100 UNIT/ML SUBCUT SCH (17:06)
[2016-10-15] MEDS: tiZANidine 4 MG TABLET PO SCH (20:18)
[2016-10-15] MEDS: ROSUVASTATIN 20 MG TABLET PO SCH (20:18)
[2016-10-15] MEDS: INSULIN GLARGINE 100 UNIT/ML SUBCUT SCH (20:19)
[2016-10-15] MEDS: KETOROLAC 30 MG/1 ML VIAL IV PRN (20:26)
[2016-10-15] MEDS: ZALEPLON 5 MG CAPSULE PO PRN ×2 (20:26→22:46)
[2016-10-16] MEDS: MORPHINE 2 MG/1 ML SYRINGE IV PRN (01:58)
[2016-10-16 05:33] LABS: Basophils % 0.5 % (0.0-0.8); Eosinophils # 0.2 10*3/uL (0.0-0.87); Eosinophils % 3.2 % (0.00-10.9); Hematocrit 32.4 VOL% (35.7-47.0); Immature Granulocytes Absolute 0.06 #; Mean Corpuscular Hemoglobin 32 PG (27-34); Mean Corpuscular Volume 93.1 FL (87-102); Mean Platelet Volume 10.9 FL (9.6-12.0); Monocytes # 0.3 10*3/uL (0.11-0.8); Monocytes % 5.5 % (1.7-12.7); Neutrophils # 3.6 10*3/uL (1.4-7.4); Neutrophils % 57.8 % (38.7-73.9); Platelet Count 185 T/CUMM (130-400); Red Blood Count 3.48 MC/CUMM (3.8-5.5); Red Cell Distribution Width 13.8 % (9.3-17.3); White Blood Count 6.2 T/CUMM (4-12)
[2016-10-16 06:12] LABS: Alanine Aminotransferase 22 U/L (13-56); Albumin 2.5 G/DL (3.4-5.0); Alkaline Phosphatase 93 U/L (45-117); Aspartate Amino Transferase 8 U/L (0-37); Bilirubin,Indirect 0.5 MG/DL (0.0-1.0); Blood Urea Nitrogen 69 MG/DL (7-18); Calcium 8.7 MG/DL (8.5-10.1); Glucose 163 MG/DL (74-106); Magnesium 2.2 MG/DL (1.8-2.4); Osmolality,Calculated 309.8 MOS/KG (273-304); Potassium 4.1 MMOL/L (3.5-5.1); Sodium 144 MMOL/L (136-145); Total Protein 5.6 G/DL (6.4-8.3)
[2016-10-16 06:13] LABS: Troponin I Only 0.636 NG/ML (0.00-0.045)
--- NOTE | 2016-10-16 07:47 | XRay Report ---
2 view chest. Indication: Shortness of breath. Comparison: October 14, 2016. The heart is enlarged. Post median sternotomy. Cardiac hardware is in satisfactory position. Right IJ line is in satisfactory position. The pulmonary vasculature is normal. The right lung is clear. Atelectasis and pleural effusion at the left lung base is stable. Osseous structures are unchanged. Impression: No interval change. Persistent pleural and parenchymal abnormality at the left base. PROCEDURE INTERPRETED AT [facility] DEPARTMENT OF RADIOLOGY Final Report Signed by: Dr. Sarita Graham
--- NOTE | 2016-10-16 09:17 | Cardiothoracic Progress Note ---
Cardiothoracic Subjective Interval history: Patient is slowly improving. She is breathing more comfortably and her vital signs are stable. Blood work is essentially okay but her chest x-ray does show some lower lobe atelectasis and effusion. I have encouraged her to cough and deep breathe and to be as active as possible during the day. Hopefully this will improve without further intervention. Overall her progress appears satisfactory. Exam (Progress Note) - Constitutional Vitals: Period Temp Pulse Resp BP Sys/Hoang Pulse Ox Last 24 Hr 96.4 F-98.5 F 60-62 16-20 115-149/59-79 91-97 Result/EKG - Labs CBC & BMP: 10/16/16 05:00 10/16/16 05:00 Labs: Laboratory Results - last 24 hr 10/15/16 10/15/16 10/15/16 11:59 15:26 19:48 WBC RBC Hgb Hct MCV MCH MCHC RDW Plt Count MPV Neut % (Auto) Lymph % (Auto) [place] % (Auto) Eos % (Auto) Baso % (Auto) Neut # (Auto) Lymph # (Auto) [place] # (Auto) Eos # (Auto) Baso # (Auto) Immature Gran % Nucleated RBC % Immature Gran # Nucleated RBCs # Sodium Potassium Chloride Carbon Dioxide Anion Gap BUN Creatinine GFR Calculation BUN/Creatinine Ratio Glucose POC Glucose 239 H 314 H 411 H Calculated Osmolality Calcium Magnesium Total Bilirubin Direct Bilirubin Indirect Bilirubin AST ALT Alkaline Phosphatase Total Creatine Kinase CK-MB (CK-2) Troponin I Total Protein Albumin Globulin Albumin/Globulin Ratio 10/15/16 10/16/16 10/16/16 22:41 05:00 05:00 WBC 6.2 RBC 3.48 L Hgb 11.0 L Hct 32.4 L MCV 93.1 MCH 32 MCHC 34.0 RDW 13.8 Plt Count 185 D MPV 10.9 Neut % (Auto) 57.8 Lymph % (Auto) 32.0 [place] % (Auto) 5.5 Eos % (Auto) 3.2 Baso % (Auto) 0.5 Neut # (Auto) 3.6 Lymph # (Auto) 2.0 [place] # (Auto) 0.3 Eos # (Auto) 0.2 Baso # (Auto) 0.0 Immature Gran % 1.0 Nucleated RBC % 0.0 Immature Gran # 0.06 Nucleated RBCs # 0.00 Sodium 144 Potassium 4.1 Chloride 104 Carbon Dioxide 35 H Anion Gap 9.1 BUN 69 H Creatinine 1.30 H GFR Calculation 55 BUN/Creatinine Ratio 53.00 H Glucose 163 H POC Glucose 336 H Calculated Osmolality 309.8 H Calcium 8.7 Magnesium 2.2 Total Bilirubin 0.60 Direct Bilirubin 0.10 Indirect Bilirubin 0.5 AST 8 ALT 22 Alkaline Phosphatase 93 Total Creatine Kinase 52 D CK-MB (CK-2) 1.1 Troponin I 0.636 H D Total Protein 5.6 L Albumin 2.5 L Globulin 3.1 Albumin/Globulin Ratio 0.8 L Quality Measures - VTE Contraindication to Pharmacological VTE Prophylaxis: High Risk of Bleeding Specialty Discharge - Follow Up or Referrals
[2016-10-16] MEDS: oxyCODONE/ACETAMINOPHEN 5-325 MG TABLET PO PRN ×2 (09:26→21:29)
[2016-10-16] MEDS: amLODIPine 10 MG TABLET PO SCH (09:27)
[2016-10-16] MEDS: FUROSEMIDE 80 MG TABLET PO SCH (09:27)
[2016-10-16] MEDS: ERGOCALCIFEROL 50,000 UNIT CAPSULE PO SCH (09:27)
[2016-10-16] MEDS: FOLIC ACID 1 MG TABLET PO SCH (09:27)
[2016-10-16] MEDS: sitaGLIPtin 100 MG TABLET PO SCH (09:27)
[2016-10-16] MEDS: FERROUS SULFATE 325 MG TABLET PO SCH (09:27)
[2016-10-16] MEDS: GABAPENTIN 300 MG CAPSULE PO SCH ×2 (09:27→21:29)
[2016-10-16] MEDS: ASPIRIN CHEW 81 MG TABLET PO SCH (09:27)
[2016-10-16] MEDS: CARVEDILOL 12.5 MG TABLET PO SCH ×2 (09:27→16:22)
[2016-10-16] MEDS: cloNIDine 0.1 MG TABLET PO SCH ×3 (09:27→21:30)
[2016-10-16] MEDS: DOCUSATE SODIUM 100 MG CAPSULE PO SCH (09:27)
[2016-10-16] MEDS: SERTRALINE 100 MG TABLET PO SCH (09:28)
[2016-10-16] MEDS: PANTOPRAZOLE 40 MG TABLET PO SCH (09:28)
[2016-10-16] MEDS: INSULIN LISPRO 100 UNIT/ML SUBCUT SCH ×4 (09:28→21:31)
[2016-10-16] MEDS: metOLazone 5 MG TABLET PO SCH (09:28)
[2016-10-16] MEDS: DULoxetine 30 MG CAPSULE PO SCH (09:28)
[2016-10-16] MEDS: INSULIN NPH/REGULAR 70/30 100 UNIT/ML SUBCUT SCH ×2 (09:28→16:19)
[2016-10-16] MEDS: KETOROLAC 30 MG/1 ML VIAL IV PRN (09:33)
[2016-10-16] MEDS: CHLORHEXIDINE 0.12% ORAL RINSE 60 ML BOTTLE SWISH/SPIT SCH ×2 (09:34→21:32)
[2016-10-16] MEDS: FLUTICASONE 50 MCG NASAL SPRAY 16 GM BOTTLE BOTH NARES SCH (09:34)
--- NOTE | 2016-10-16 12:48 | Hospitalist Progress Note ---
Assessment and Plan (1) Diabetes Status: Chronic Assessment and plan: The patient's blood sugars are less than well controlled. I am going to add glipizide today to improve glycemic control and recheck glucometers tomorrow. Current Visit: Yes Qualifiers: Diabetes mellitus type: type 2 Chronic kidney disease stage: stage 2 (mild ) (2) S/P CABG x 2 Status: Acute Current Visit: Yes Hospitalist: Subjective Interval history: The patient is resting quietly in bed. She has no complaint of shortness of breath or chest discomfort. Glucometers show hyperglycemia. Exam - Constitutional Vitals: Period Temp Pulse Resp BP Sys/Hoang Pulse Ox Last 24 Hr 96.4 F-98.5 F 60-61 16-20 115-149/59-79 91-97 General appearance: no acute distress - Head Head exam: Present: normocephalic - Respiratory Respiratory exam: Present: clear to auscultation bilaterally - Cardiovascular Cardiovascular exam: Present: regular rate and rhythm - GI/Abdominal GI/Abdominal exam: Present: normal bowel sounds Results - Labs CBC & BMP: 10/16/16 05:00 10/16/16 05:00 Lab Results: I have reviewed the past 24 hour labs Quality Measures - VTE Contraindication to Pharmacological VTE Prophylaxis: High Risk of Bleeding Specialty Discharge - Follow Up or Referrals
[2016-10-16] MEDS: glipiZIDE 5 MG TABLET PO SCH (16:18)
[2016-10-16] MEDS: tiZANidine 4 MG TABLET PO SCH (21:29)
[2016-10-16] MEDS: ZALEPLON 5 MG CAPSULE PO PRN (21:30)
[2016-10-16] MEDS: ROSUVASTATIN 20 MG TABLET PO SCH (21:30)
[2016-10-16] MEDS: INSULIN GLARGINE 100 UNIT/ML SUBCUT SCH (21:32)
[2016-10-17] MEDS: MORPHINE 2 MG/1 ML SYRINGE IV PRN (00:03)
[2016-10-17 05:57] LABS: Basophils % 0.3 % (0.0-0.8); Eosinophils # 0.2 10*3/uL (0.0-0.87); Eosinophils % 2.9 % (0.00-10.9); Hematocrit 32.5 VOL% (35.7-47.0); Hemoglobin 10.7 GM/DL (12.0-16.0); Immature Granulocytes % 0.8 %; Immature Granulocytes Absolute 0.05 #; Lymphocytes % 32.8 % (21.3-54.2); Mean Corpuscular HGB Conc 32.9 GM/DL (32-36); Mean Corpuscular Hemoglobin 31 PG (27-34); Mean Corpuscular Volume 94.8 FL (87-102); Mean Platelet Volume 11.1 FL (9.6-12.0); Monocytes # 0.4 10*3/uL (0.11-0.8); Neutrophils # 3.5 10*3/uL (1.4-7.4); Neutrophils % 57.2 % (38.7-73.9); Platelet Count 182 T/CUMM (130-400); Red Blood Count 3.43 MC/CUMM (3.8-5.5); Red Cell Distribution Width 13.9 % (9.3-17.3); White Blood Count 6.1 T/CUMM (4-12)
[2016-10-17 06:32] LABS: Alanine Aminotransferase 20 U/L (13-56); Albumin 2.5 G/DL (3.4-5.0); Alkaline Phosphatase 99 U/L (45-117); Aspartate Amino Transferase 8 U/L (0-37); Bilirubin,Direct < 0.10 MG/DL (0.0-0.20); Bilirubin,Indirect 0.3 MG/DL (0.0-1.0); Bilirubin,Total < 0.39 MG/DL (0.2-1.0); Blood Urea Nitrogen 80 MG/DL (7-18); Calcium 8.2 MG/DL (8.5-10.1); Glucose 211 MG/DL (74-106); Magnesium 2.3 MG/DL (1.8-2.4); Potassium 4.1 MMOL/L (3.5-5.1); Sodium 143 MMOL/L (136-145); Total Protein 5.5 G/DL (6.4-8.3)
--- NOTE | 2016-10-17 07:56 | XRay Report ---
2 view chest. Indication: Shortness of breath. Comparison: Yesterday's exam. The heart is enlarged. Postmedian sternotomy. Central venous catheter in satisfactory position. Cardiac hardware in satisfactory position. There is mild increased prominence of the right suprahilar region compared to yesterday's exam. There is pleural and parenchymal opacity at the left lung base, likely representing atelectasis plus pleural effusion. These findings are stable to slightly improved. Degenerative changes are noted within the spinal column. Impression: 1. New opacity within the right superior hilum. Follow-up recommended. 2. Stable to mildly improved pleural and parenchymal abnormality at the left lung base. PROCEDURE INTERPRETED AT [facility] DEPARTMENT OF RADIOLOGY Final Report Signed by: Dr. Sarita Graham
--- NOTE | 2016-10-17 08:03 | Cardiothoracic Progress Note ---
Cardiothoracic Subjective Interval history: Patient looks and feels better. Vital signs are stable and she is breathing comfortably. She has been ambulating without assistance in her room. We will gradually try to increase this as tolerated. Overall her progress appears satisfactory and we will continue present therapy and hopefully discharge within the next 2-3 days. Exam (Progress Note) - Constitutional Vitals: Period Temp Pulse Resp BP Sys/Hoang Pulse Ox Last 24 Hr 96.7 F-98.2 F 60-62 18-20 119-143/59-71 94-98 Result/EKG - Labs CBC & BMP: 10/17/16 05:23 10/17/16 05:23 Labs: Laboratory Results - last 24 hr 10/16/16 10/16/16 10/16/16 07:53 12:08 15:44 WBC RBC Hgb Hct MCV MCH MCHC RDW Plt Count MPV Neut % (Auto) Lymph % (Auto) [place] % (Auto) Eos % (Auto) Baso % (Auto) Neut # (Auto) Lymph # (Auto) [place] # (Auto) Eos # (Auto) Baso # (Auto) Immature Gran % Nucleated RBC % Immature Gran # Nucleated RBCs # Sodium Potassium Chloride Carbon Dioxide Anion Gap BUN Creatinine GFR Calculation BUN/Creatinine Ratio Glucose POC Glucose 188 H 239 H 218 H Calculated Osmolality Calcium Magnesium Total Bilirubin Direct Bilirubin Indirect Bilirubin AST ALT Alkaline Phosphatase Total Creatine Kinase CK-MB (CK-2) Troponin I Total Protein Albumin Globulin Albumin/Globulin Ratio 10/16/16 10/17/16 10/17/16 20:55 05:23 05:23 WBC 6.1 RBC 3.43 L Hgb 10.7 L Hct 32.5 L MCV 94.8 MCH 31 MCHC 32.9 RDW 13.9 Plt Count 182 MPV 11.1 Neut % (Auto) 57.2 Lymph % (Auto) 32.8 [place] % (Auto) 6.0 Eos % (Auto) 2.9 Baso % (Auto) 0.3 Neut # (Auto) 3.5 Lymph # (Auto) 2.0 [place] # (Auto) 0.4 Eos # (Auto) 0.2 Baso # (Auto) 0.0 Immature Gran % 0.8 Nucleated RBC % 0.0 Immature Gran # 0.05 Nucleated RBCs # 0.00 Sodium 143 Potassium 4.1 Chloride 102 Carbon Dioxide 34 H Anion Gap 11.1 BUN 80 H Creatinine 1.40 H GFR Calculation 50 BUN/Creatinine Ratio 57.00 H Glucose 211 H POC Glucose 249 H Calculated Osmolality 314.0 H Calcium 8.2 L Magnesium 2.3 Total Bilirubin < 0.39 Direct Bilirubin < 0.10 Indirect Bilirubin 0.3 AST 8 ALT 20 Alkaline Phosphatase 99 Total Creatine Kinase 52 CK-MB (CK-2) 1.8 Troponin I 0.490 H D Total Protein 5.5 L Albumin 2.5 L Globulin 3.0 Albumin/Globulin Ratio 0.8 L Quality Measures - VTE Contraindication to Pharmacological VTE Prophylaxis: High Risk of Bleeding Specialty Discharge - Follow Up or Referrals
[2016-10-17] MEDS: amLODIPine 10 MG TABLET PO SCH (09:34)
[2016-10-17] MEDS: ERGOCALCIFEROL 50,000 UNIT CAPSULE PO SCH (09:34)
[2016-10-17] MEDS: SERTRALINE 100 MG TABLET PO SCH (09:35)
[2016-10-17] MEDS: CARVEDILOL 12.5 MG TABLET PO SCH ×2 (09:35→17:40)
[2016-10-17] MEDS: DOCUSATE SODIUM 100 MG CAPSULE PO SCH (09:35)
[2016-10-17] MEDS: sitaGLIPtin 100 MG TABLET PO SCH (09:35)
[2016-10-17] MEDS: ASPIRIN CHEW 81 MG TABLET PO SCH (09:35)
[2016-10-17] MEDS: metOLazone 5 MG TABLET PO SCH (09:35)
[2016-10-17] MEDS: FOLIC ACID 1 MG TABLET PO SCH (09:35)
[2016-10-17] MEDS: cloNIDine 0.1 MG TABLET PO SCH ×3 (09:35→21:58)
[2016-10-17] MEDS: PANTOPRAZOLE 40 MG TABLET PO SCH (09:35)
[2016-10-17] MEDS: FERROUS SULFATE 325 MG TABLET PO SCH (09:35)
[2016-10-17] MEDS: GABAPENTIN 300 MG CAPSULE PO SCH ×2 (09:35→21:58)
[2016-10-17] MEDS: DULoxetine 30 MG CAPSULE PO SCH (09:35)
[2016-10-17] MEDS: FUROSEMIDE 80 MG TABLET PO SCH (09:35)
[2016-10-17] MEDS: INSULIN NPH/REGULAR 70/30 100 UNIT/ML SUBCUT SCH ×2 (09:36→17:40)
[2016-10-17] MEDS: glipiZIDE 5 MG TABLET PO SCH ×2 (09:36→17:40)
[2016-10-17] MEDS: INSULIN LISPRO 100 UNIT/ML SUBCUT SCH ×4 (09:36→21:58)
[2016-10-17] MEDS: CHLORHEXIDINE 0.12% ORAL RINSE 60 ML BOTTLE SWISH/SPIT SCH ×2 (09:40→21:59)
[2016-10-17] MEDS: FLUTICASONE 50 MCG NASAL SPRAY 16 GM BOTTLE BOTH NARES SCH (09:40)
[2016-10-17] MEDS: oxyCODONE/ACETAMINOPHEN 5-325 MG TABLET PO PRN ×2 (13:56→21:57)
--- NOTE | 2016-10-17 14:00 | EKG Report ---
Stationary ECG Study [facility] Test Date: 10/17/2016 7:51:37 AM Pat Name: JESSICA HOUSER Department: Room: 271 Gender: F Seam Feller: SHADY : 1960 Requested by: Luis La Order Number: [id number] Reading MD: SUSAN GUTIERREZ Intervals Pride Rate: 60 P: 103 MN: 211 QRS: -17 QRSD: 115 T: 128 QT: 419 QTc: 419 Interpretive Statements ELECTRONIC ATRIAL PACEMAKER LEFT VENTRICULAR HYPERTROPHY AND ST-T CHANGE Poor R wave progression Electronically Signed On 10-17-16 14:04:04 CDT by SUSAN GUTIERREZ [email or web address]
--- NOTE | 2016-10-17 15:18 | Hospitalist Progress Note ---
Assessment and Plan (1) Diabetes Status: Chronic Assessment and plan: The patient's blood sugars are less than well controlled. I patient will continue on glipizide. We continue on glucometer checks and if not appropriately controlled will increase glipizide dose tomorrow. Current Visit: Yes Qualifiers: Diabetes mellitus type: type 2 Chronic kidney disease stage: stage 2 (mild ) (2) S/P CABG x 2 Status: Acute Current Visit: Yes Hospitalist: Subjective Interval history: The patient is resting comfortably. She does not complain of shortness of breath or pleurisy. Exam - Constitutional Vitals: Period Temp Pulse Resp BP Sys/Hoang Pulse Ox Last 24 Hr 96.7 F-98.9 F 60-62 18-20 116-139/59-71 93-98 General appearance: no acute distress - Respiratory Respiratory exam: Present: clear to auscultation bilaterally - Cardiovascular Cardiovascular exam: Present: regular rate and rhythm Results - Labs CBC & BMP: 10/17/16 05:23 10/17/16 05:23 Quality Measures - VTE Contraindication to Pharmacological VTE Prophylaxis: High Risk of Bleeding Specialty Discharge - Follow Up or Referrals
[2016-10-17] MEDS: tiZANidine 4 MG TABLET PO SCH (21:57)
[2016-10-17] MEDS: ROSUVASTATIN 20 MG TABLET PO SCH (21:58)
[2016-10-17] MEDS: ZALEPLON 5 MG CAPSULE PO PRN (21:58)
[2016-10-17] MEDS: INSULIN GLARGINE 100 UNIT/ML SUBCUT SCH (21:59)
[2016-10-18] MEDS: MORPHINE 2 MG/1 ML SYRINGE IV PRN (00:59)
[2016-10-18 05:46] LABS: Calcium 8.1 MG/DL (8.5-10.1); Magnesium 2.3 MG/DL (1.8-2.4); Osmolality,Calculated 315.8 MOS/KG (273-304); Potassium 4.5 MMOL/L (3.5-5.1)
--- NOTE | 2016-10-18 06:27 | Cardiothoracic Progress Note ---
Cardiothoracic Subjective Interval history: Patient had a good night. She has been breathing comfortably and her vital signs have been stable. She is gradually increasing her activity. Continue as tolerated but overall her progress has been satisfactory. Exam (Progress Note) - Constitutional Vitals: Period Temp Pulse Resp BP Sys/Hoang Pulse Ox Last 24 Hr 96.6 F-98.9 F 60-72 18-20 116-140/58-90 92-98 Result/EKG - Labs CBC & BMP: 10/17/16 05:23 10/18/16 04:18 Labs: Laboratory Results - last 24 hr 10/17/16 10/17/16 10/17/16 05:23 07:48 11:47 Sodium 143 Potassium 4.1 Chloride 102 Carbon Dioxide 34 H Anion Gap 11.1 BUN 80 H Creatinine 1.40 H GFR Calculation 50 BUN/Creatinine Ratio 57.00 H Glucose 211 H POC Glucose 258 H 272 H Calculated Osmolality 314.0 H Calcium 8.2 L Magnesium 2.3 Total Bilirubin < 0.39 Direct Bilirubin < 0.10 Indirect Bilirubin 0.3 AST 8 ALT 20 Alkaline Phosphatase 99 Total Creatine Kinase 52 CK-MB (CK-2) 1.8 Troponin I 0.490 H D Total Protein 5.5 L Albumin 2.5 L Globulin 3.0 Albumin/Globulin Ratio 0.8 L 10/17/16 10/17/16 10/18/16 16:38 20:26 04:18 Sodium 144 Potassium 4.5 Chloride 104 Carbon Dioxide 31 Anion Gap 13.5 BUN 74 H Creatinine 1.60 H GFR Calculation 43 BUN/Creatinine Ratio 46.00 H Glucose 248 H POC Glucose 132 H 262 H Calculated Osmolality 315.8 H Calcium 8.1 L Magnesium 2.3 Total Bilirubin Direct Bilirubin Indirect Bilirubin AST ALT Alkaline Phosphatase Total Creatine Kinase CK-MB (CK-2) Troponin I Total Protein Albumin Globulin Albumin/Globulin Ratio Quality Measures - VTE Contraindication to Pharmacological VTE Prophylaxis: High Risk of Bleeding Specialty Discharge - Follow Up or Referrals
[2016-10-18] MEDS ORDERED: INSULIN GLARGINE 100 UNIT/ML SUBCUT SCH ×2 (08:56→14:36)
[2016-10-18] MEDS: INSULIN LISPRO 100 UNIT/ML SUBCUT SCH ×4 (09:36→20:44)
[2016-10-18] MEDS: ERGOCALCIFEROL 50,000 UNIT CAPSULE PO SCH (09:37)
[2016-10-18] MEDS: GABAPENTIN 300 MG CAPSULE PO SCH ×2 (09:37→20:44)
[2016-10-18] MEDS: cloNIDine 0.1 MG TABLET PO SCH ×3 (09:37→20:44)
[2016-10-18] MEDS: amLODIPine 10 MG TABLET PO SCH (09:37)
[2016-10-18] MEDS: DULoxetine 30 MG CAPSULE PO SCH (09:37)
[2016-10-18] MEDS: INSULIN NPH/REGULAR 70/30 100 UNIT/ML SUBCUT SCH (09:37)
[2016-10-18] MEDS: SERTRALINE 100 MG TABLET PO SCH (09:38)
[2016-10-18] MEDS: CARVEDILOL 12.5 MG TABLET PO SCH ×2 (09:38→17:48)
[2016-10-18] MEDS: PANTOPRAZOLE 40 MG TABLET PO SCH (09:38)
[2016-10-18] MEDS: DOCUSATE SODIUM 100 MG CAPSULE PO SCH (09:38)
[2016-10-18] MEDS: glipiZIDE 5 MG TABLET PO SCH ×2 (09:38→17:47)
[2016-10-18] MEDS: sitaGLIPtin 100 MG TABLET PO SCH (09:38)
[2016-10-18] MEDS: FUROSEMIDE 80 MG TABLET PO SCH (09:38)
[2016-10-18] MEDS: ASPIRIN CHEW 81 MG TABLET PO SCH (09:38)
[2016-10-18] MEDS: FOLIC ACID 1 MG TABLET PO SCH (09:39)
[2016-10-18] MEDS: FLUTICASONE 50 MCG NASAL SPRAY 16 GM BOTTLE BOTH NARES SCH (09:39)
[2016-10-18] MEDS: FERROUS SULFATE 325 MG TABLET PO SCH (09:39)
[2016-10-18] MEDS: CHLORHEXIDINE 0.12% ORAL RINSE 60 ML BOTTLE SWISH/SPIT SCH ×2 (09:39→20:48)
[2016-10-18] MEDS: metOLazone 2.5 MG TABLET PO SCH (09:40)
[2016-10-18] MEDS: oxyCODONE/ACETAMINOPHEN 5-325 MG TABLET PO PRN ×2 (09:49→17:48)
[2016-10-18] MEDS ORDERED: INSULIN NPH/REGULAR 70/30 100 UNIT/ML SUBCUT SCH ×2 (14:36)
--- NOTE | 2016-10-18 14:37 | Hospitalist Progress Note ---
Assessment and Plan (1) Diabetes Status: Chronic Assessment and plan: The patient's blood sugars are less than well controlled. I patient will continue on glipizide. Intermediate and long-acting insulins will be increased. The patient continues on sliding scale and I will reassess glucose control tomorrow. Current Visit: Yes Qualifiers: Diabetes mellitus type: type 2 Chronic kidney disease stage: stage 2 (mild ) (2) S/P CABG x 2 Status: Acute Current Visit: Yes Hospitalist: Subjective Interval history: Ms. Chun is more alert. Appetite and carbohydrate intake have improved. Exam - Constitutional Vitals: Period Temp Pulse Resp BP Sys/Hoang Pulse Ox Last 24 Hr 96.6 F-97.9 F 60-72 18-20 119-140/57-90 92-97 General appearance: mild distress - Respiratory Respiratory exam: Present: clear to auscultation bilaterally - Cardiovascular Cardiovascular exam: Present: regular rate and rhythm - GI/Abdominal GI/Abdominal exam: Present: normal bowel sounds Results - Labs CBC & BMP: 10/17/16 05:23 10/18/16 04:18 Lab Results: I have reviewed the past 24 hour labs Quality Measures - VTE Contraindication to Pharmacological VTE Prophylaxis: High Risk of Bleeding Specialty Discharge - Follow Up or Referrals
[2016-10-18] MEDS: tiZANidine 4 MG TABLET PO SCH (20:43)
[2016-10-18] MEDS: ZALEPLON 5 MG CAPSULE PO PRN (20:44)
[2016-10-18] MEDS: ROSUVASTATIN 20 MG TABLET PO SCH (20:44)
[2016-10-19] MEDS: oxyCODONE/ACETAMINOPHEN 5-325 MG TABLET PO PRN (00:11)
[2016-10-19] MEDS: glipiZIDE 5 MG TABLET PO SCH (08:02)
[2016-10-19] MEDS: INSULIN LISPRO 100 UNIT/ML SUBCUT SCH ×2 (08:03→14:08)
--- NOTE | 2016-10-19 09:16 | Discharge Summary ---
Hospital Course - Hospital Course Hospital Course: History of present illness: Patient is a 56-year-old lady who was referred from [facility] for cardiac [facility]. She has had multiple previous stenting procedures in her coronary arteries and now presents with recurring disease. Review of her cardiac cath films show significant and extensive stents in her coronary arteries but she has targets in her right coronary and anterior descending coronary distributions. Patient was admitted for bypass surgery to those areas. Past medical history review of systems social history and family history are documented in her admission notes. Hospital course: Patient was taken to surgery and two-vessel bypass grafting was carried out with grafts to the anterior descending and right coronary arteries. Postoperative course was surprisingly uncomplicated and the patient was discharged home on the eighth postoperative day. She is to return for follow-up in 1 month and discharge medications are listed below. Specialty Discharge - Follow Up or Referrals Follow up with: Luis Melendez MD [Physician] - 10/26/16 10:30 am - Speciality Discharge Instructions Cardiothoracic Instructions: Please send copy of discharge summary to Dr. Owen Ventura at [facility]. Discharge Plan - Discharge Data Condition at Discharge: Stable Discharge Diet: advance to your usual diet Activity: resume usual activities as tolerated Hygiene: no restrictions Weight Bearing at Discharge: full weight bearing Driving: no restrictions - Discharge Medications New Albuterol Neb [Proventil Neb] 2.5 mg RESP TX RT Q6H PRN PRN Reason: Shortness Of Breath/Wheezing Aspirin Chew Tab 81 mg PO DAILY tablet Folic Acid Tab 1 mg PO DAILY tablet oxyCODONE/ACETAMINOPHEN 5-325 [Percocet 5-325] 1 tablet PO Q4H PRN tablet PRN Reason: Pain Mild (1-3) carBAMazepine XR TAB [TEGretol XR] 200 mg PO BID tablet Carvedilol [Coreg] 12.5 mg PO BID W/MEALS tablet Docusate Sodium Cap [Colace Cap] 100 mg PO DAILY capsule DULoxetine [Cymbalta] 30 mg PO DAILY capsule Ergocalciferol [Drisdol] 50,000 unit PO DAILY capsule Fluticasone 50 Mcg Nasal [place] [Flonase Nasal [place]] 2 spray BOTH NARES DAILY spray Furosemide Tab [Lasix Tab] 80 mg PO DAILY tablet Gabapentin Cap/Tab [Neurontin Cap/Tab] 300 mg PO BID capsule glipiZIDE [Glucotrol] 10 mg PO BIDAC tablet metOLazone [Zaroxolyn] 2.5 mg PO DAILY tablet Pantoprazole Tab [Protonix Tab] 40 mg PO DAILY tablet Potassium Chloride Cap/Tab [K Dur] 20 meq PO .PER PROTOCOL PRN tablet PRN Reason: Per Protocol Rosuvastatin [Crestor] 20 mg PO BEDTIME tablet Sertraline [Zoloft] 100 mg PO DAILY tablet sitaGLIPtin [Januvia] 100 mg PO DAILY tablet tiZANidine [Zanaflex] 4 mg PO BEDTIME tablet Continue Isosorbide Mononitrate [Isosorbide Mononitrate ER] 60 mg PO DAILY Nitroglycerin Sl Tab [Nitrostat] 0.4 mg SL Q5M PRN PRN Reason: Chest Pain Lisinopril 10 mg PO DAILY Tizanidine HCl 4 mg PO BEDTIME Ticagrelor [Brilinta] 90 mg PO BID Rosuvastatin [Crestor] 20 mg PO BEDTIME Insulin Degludec [Tresiba Flextouch U-100] 60 unit SUBCUT QAM Furosemide 80 mg PO DAILY Icosapent Ethyl [Vascepa] 2 capsule PO BID carBAMazepine XR TAB [TEGretol XR] 200 mg PO BID Sertraline [Zoloft] 100 mg PO DAILY Saxagliptin HCl [Onglyza] 5 mg PO DAILY Insulin Aspart [NovoLOG FlexPen] 20 unit SUBCUT TID hydrALAZINE TAB [Apresoline Tab] 1.5 tablet PO TID Gabapentin 300 mg PO BID Folic Acid Tab 1 mg PO DAILY Fluticasone 50 Mcg Nasal [place] [Flonase Nasal [place]] 2 spray BOTH NARES DAILY Amlodipine Besylate 10 mg PO DAILY Albuterol Sulfate [Albuterol Neb] 2.5 mg RESP TX Q6HR Hydrocodone/Acetaminophen [Hydrocodon-Acetaminophn 10-325] 1 tablet PO Q4HR Carvedilol 12.5 mg PO BID Eszopiclone [Lunesta] 3 mg PO BEDTIME Aspirin Chew Tab 81 mg PO DAILY Evolocumab [Repatha Sureclick] 140 mg SUBCUT DIRECTED metOLazone [Metolazone] 5 mg PO DAILY Duloxetine HCl [Duloxetine] 30 mg PO DAILY - Follow Up or Referral Follow Up: Luis Melendez MD [Physician] - 10/26/16 10:30 am - Forms/Instructions Instructions: Heart Healthy Diet (GEN), Coronary Artery Bypass Graft, Airplane Tube Builder (GEN), Sternal Precautions (GEN) Exam - Constitutional Vitals: Period Temp Pulse Resp BP Sys/Hoang Pulse Ox Last 24 Hr 96.5 F-98.6 F 58-80 16-20 111-136/62-79 92-99 Discharge Results Procedures and tests throughout hospitalization: Pending Orders 10/10/16 03:14 Fresh Frozen Plasma IN AM Red Blood Cells Leuko Red IN AM Single Donor Platelets IN AM Type and Screen Routine Labs on day of discharge: Labs from last 24 hours 10/19/16 10/18/16 10/18/16 07:15 19:45 16:25 POC Glucose 116 H 266 H 146 H 10/18/16 11:11 POC Glucose 311 H DS: Provider Date of admission: 10/08/16 11:22 Primary care physician: Phil Fairbanks Attending physician on admission: Luis Melendez MD Consults: 10/07/16 09:48 Consult to Dietitian [CONS] Routine Reason for Dietitian: Other Consult Comment: low salt, low cholesterol, diet 10/08/16 13:55 Consult to [facility], Educator [CONS] Routine Reason for Boat Loader: Diabetes Education 10/12/16 08:44 Consult to Cardiac Rehabilitation [CONS] Routine Reason for Cardiac Rehabilitation: Other Consult Comment: Post CABG/heart surgery Consult to Diabetes Center, Educator [CONS] Routine Reason for Boat Loader: Diabetes Education Initial Insulin Education Consult Comment: insulin education Consult to Dietitian [CONS] Routine Reason for Dietitian: Dietary Consult Consult Comment: Cardiac, low salt, low cholesterol diet Consult to Physical Therapy [CONS] Routine Reason for Physical Therapy: Other Consult Comment: CV Rehab Consult to Physician [CONS] Routine Comment: Management of diabetes Consulting Provider: Consult to Specialist Group: Hospitalist Discharging clinician: Luis Melendez MD Expected date of discharge: 10/19/16
[2016-10-19] MEDS: amLODIPine 10 MG TABLET PO SCH (09:25)
[2016-10-19] MEDS: CARVEDILOL 12.5 MG TABLET PO SCH (09:26)
[2016-10-19] MEDS: FERROUS SULFATE 325 MG TABLET PO SCH (09:26)
[2016-10-19] MEDS: DOCUSATE SODIUM 100 MG CAPSULE PO SCH (09:26)
[2016-10-19] MEDS: GABAPENTIN 300 MG CAPSULE PO SCH (09:26)
[2016-10-19] MEDS: cloNIDine 0.1 MG TABLET PO SCH (09:26)
[2016-10-19] MEDS: sitaGLIPtin 100 MG TABLET PO SCH (09:26)
[2016-10-19] MEDS: metOLazone 2.5 MG TABLET PO SCH (09:26)
[2016-10-19] MEDS: FOLIC ACID 1 MG TABLET PO SCH (09:26)
[2016-10-19] MEDS: SERTRALINE 100 MG TABLET PO SCH (09:26)
[2016-10-19] MEDS: PANTOPRAZOLE 40 MG TABLET PO SCH (09:27)
[2016-10-19] MEDS: ASPIRIN CHEW 81 MG TABLET PO SCH (09:27)
[2016-10-19] MEDS: FUROSEMIDE 80 MG TABLET PO SCH (09:27)
[2016-10-19] MEDS: DULoxetine 30 MG CAPSULE PO SCH (09:27)
[2016-10-19] MEDS: CHLORHEXIDINE 0.12% ORAL RINSE 60 ML BOTTLE SWISH/SPIT SCH (09:27)
[2016-10-19 11:49] VITALS: BP 160/67
[2016-10-19] MEDS: FLUTICASONE 50 MCG NASAL SPRAY 16 GM BOTTLE BOTH NARES SCH (14:08)
[2016-10-19] MEDS: ERGOCALCIFEROL 50,000 UNIT CAPSULE PO SCH (14:08)
== END 2016-10-19 13:10 | disposition home health service (06) | DRG 236 ==
LOC: N.TELEN 11:22 → N.CVR 10-11 09:43 → N.TELES 10-12 11:34